=== PATIENT | male | born 1960 | race Caucasian/White ===

== ENCOUNTER 2021-11-04 09:30 | Emergency (ER) | payer BC, SELFPAY ==
[2021-11-04 09:35] VITALS: BP 188/104; PULSE 70; RESP 16; O2SAT 94; BMI 35.1
--- NOTE | 2021-11-04 09:48 | ED_ITS ---
HPI - General Adult General: Chief complaint: General Medical Stated complaint: ABNORMAL LAB, CHEST PAIN Time Seen by Provider: 11/04/21 09:39 Source: patient Mode of arrival: ambulatory Limitations: no limitations History of Present Illness: 61-year-old male presents emergency room with complaint of abnormal EKG. He was seen his primary care doctor's office this morning see nurse practitioner there is a concern about an abnormal EKG and he was referred to the emergency room. He is not actively having any chest pain now. He does occasionally while at work began to have chest discomfort radiatin g into his back will resolve with a few minutes of rest he associates that with bending over. He has not had any previous stress testing he has no known coronary artery disease his mother had a coronary artery bypass graft at approximately the same age he is now. Patient is a former smoker quit 10 years ago he is diabetic and has a history of hypertension. Beyond the bending over and rest he is not noticed anything that exacerbates or relieves the discomfort. He has some mild shortness of breath associated with it which is also relieved by rest. Onset (ago): week(s) Location: chest Radiation: back Severity: mild Quality: aching Pain Consistency: intermittent Relieving factors: none Exacerbating factors: none Associated symptoms: Reports chest pain and dyspnea; Deny malaise, nausea, rash or vomiting Review of Systems Const: Denies: fever(s), chills, body aches, change in appetite, fatigue or malaise ENMT: Denies: throat pain, ear or mastoid pain, nasal discharge or nasal congestion Card: Reports: chest pain Resp: Reports: dyspnea GI: Denies: abdominal pain, nausea, vomiting, hematemesis, coffee ground emesis, diarrhea, constipation, bloating, hematochezia or melena : Denies: flank pain, dysuria, urinary frequency or urinary urgency Skin/Breast: Denies: rash or pruritus PFS ED PFSH: Medical History (Updated 11/04/21 @ 12:56 by Ky Amador DO) Diabetes mellitus Hypertension Obesity Physical Exam Const: COMMON NORMALS: no acute distress GENERAL APPEARANCE: cooperative and comfortable ORIENTATION/CONSCIOUSNESS: Yes awake, Yes oriented to person, Yes oriented to place and Yes oriented to time HENMT: COMMON NORMALS: normocephalic, atraumatic and hearing grossly normal bilaterally HEAD & SCALP: normocephalic and atraumatic Neck/C-Spine: COMMON NORMALS: no JVD Resp: COMMON NORMALS: normal respiratory effort, No retractions, No use of accessory muscles and clear to auscultation bilaterally AUSCULTATION: clear to auscultation bilaterally Cardio: COMMON NORMALS: no JVD, regular rate, regular rhythm and No murmurs present (Cardio) RATE: regular rate RHYTHM: regular rhythm GI: COMMON NORMALS: Soft to palpation and No hepatosplenomegaly present AUSCULTATION: Yes normoactive bowel sounds PALPATION: Yes Soft to palpation, No Tenderness to palpation present (GI), No Guarding due to palpation present (GI) and Yes No hepatosplenomegaly present Extremity: COMMON NORMALS: normal to inspection, capillary refill normal, no clubbing, cyanosis or edema, no calf tenderness and no pedal edema Neuro: SENSORIUM/ORIENTATION: Yes oriented to person, Yes oriented to place and Yes oriented to time Skin: COMMON NORMALS: no rashes or lesions noted GENERAL SKIN EXAM: no rashes or lesions noted Course Vital Signs: Vital signs: Vital Signs Pulse Rate 63 11/04/21 11:09 Respiratory Rate 18 11/04/21 11:09 Blood Pressure 167/95 11/04/21 11:09 Pulse Oximetry 94 11/04/21 11:09 [facility] - General Adult Medical Decision Making Patient asymptomatic this time EKG shows early repole but no acute ST changes troponin unremarkable. We will add isosorbide mononitrate 30 mg grams daily for cardioprotective effect and blood pressure lowering set him up for outpatient Lexiscan sestamibi stress test. Avoid strenuous activity recurrence of chest pain he should return to the emergency room. continue to take 81 mg aspirin daily. follow-up with his primary care doctor after the stress test is completed. Medical Records I reviewed the patient's medical records. Lab Data I reviewed the patient's lab results. : 11/04/21 09:13 11/04/21 09:13 Radiology Impressions Chest X-Ray 11/04/21 09:56 IMPRESSION: No acute chest abnormality identified. Laboratory Results WBC 6.5 10^3/uL (4.0-10.0) 11/04/21 09:13 RBC 5.79 10^6/uL (4.1-5.3) H 11/04/21 09:13 Hgb 14.8 g/dL (11.7-16.6) 11/04/21 09:13 Hct 47.0 % (42.0-52.0) 11/04/21 09:13 MCV 81.2 fl (80-94) 11/04/21 09:13 MCH 25.6 pg (28.0-34.0) L 11/04/21 09:13 MCHC 31.5 g/dL (30.0-36.0) 11/04/21 09:13 RDW 14.0 % (12.1-15.1) 11/04/21 09:13 Plt Count 248 10^3/cmm (130-400) 11/04/21 09:13 MPV 10.5 fL (7.4-10.4) H 11/04/21 09:13 Neut % (Auto) 65.9 % 11/04/21 09:13 Lymph % (Auto) 22.7 % 11/04/21 09:13 Gem % (Auto) 7.7 % 11/04/21 09:13 Eos % (Auto) 2.9 % 11/04/21 09:13 Baso % (Auto) 0.6 % 11/04/21 09:13 Neut # (Auto) 4.29 10^3/uL (1.8-7.7) 11/04/21 09:13 Lymph # (Auto) 1.5 10^3/uL (0.8-4.8) 11/04/21 09:13 Gem # (Auto) 0.5 10^3/uL (0.2-0.9) 11/04/21 09:13 Eos # (Auto) 0.2 10^3/uL (0.0-0.8) 11/04/21 09:13 Baso # (Auto) 0.0 10^3/uL (0.0-0.1) 11/04/21 09:13 Nucleated RBC % (auto) 0 % 11/04/21 09:13 Nucleated RBCs # 0.0 /100WBC 11/04/21 09:13 Sodium 132 mmol/L (136-145) L 11/04/21 09:13 Potassium 3.8 mmol/L (3.5-5.1) 11/04/21 09:13 Chloride 100 mmol/L (98-107) 11/04/21 09:13 Carbon Dioxide 21 mmol/L (22-29) L 11/04/21 09:13 Anion Gap 14.8 (5-19) 11/04/21 09:13 BUN 12 mg/dL (8-23) 11/04/21 09:13 Creatinine 0.7 mg/dL (0.7-1.2) 11/04/21 09:13 GFR Calculation 115.0 mL/min (90-130) 11/04/21 09:13 Glucose 242 mg/dL (65-115) H 11/04/21 09:13 Calculated Osmolality 282 mOsm/kg (285-295) L 11/04/21 09:13 Calcium 9.3 mg/dL (8.5-10.5) 11/04/21 09:13 Total Bilirubin 0.4 mg/dL (0.15-1.2) 11/04/21 09:13 AST 11 U/L (0-40) 11/04/21 09:13 ALT 10 U/L (0-41) 11/04/21 09:13 Alkaline Phosphatase 97 IU/L (40-130) 11/04/21 09:13 Troponin T Baseline 15 ng/L (0-15) 11/04/21 09:13 Troponin T 120 Minute 14.90 ng/L (0-15) 11/04/21 11:56 Total Protein 6.7 g/dL (6.6-8.7) 11/04/21 09:13 Albumin 3.9 g/dL (3.5-5.2) 11/04/21 09:13 Globulin 2.8 g/dL (1.3-4.6) 11/04/21 09:13 Discharge Plan Discharge Patient Disposition: Home Condition: Stable Prescriptions: New isosorbide mononitrate 30 mg tablet extended release 24 hr 30 mg PO DAILY Qty: 30 0RF No Action carvedilol 25 mg tablet 25 mg PO BID 0RF glyburide 5 mg tablet 5 mg PO BID 0RF Aspir-81 81 mg Tablet,Delayed Release (Dr/Ec) 81 mg PO QAM 0RF metformin 1,000 mg tablet 1,000 mg PO BID 0RF cinnamon bark [Cinnamon] 500 mg Capsule 500 mg PO BID 0RF Discharge Orders: Discharge ED (Routine); Ordered 11/04/21 Ordered By: Ky Amador Referrals: Alex Auguste, [Primary Care Provider] - Discharge Diet: Usual diet Discharge Activity: Limit activity as instructed Patient Instructions: Opioid Safety Activity Restrictions/Additional Instructions: Avoid strenuous activities. Start isosorbide mononitrate 1 daily. Continue aspirin 81 mg daily. manager strategic partnerships will call make arrangements for you to have a Lexiscan sestamibi stress test. Follow-up with your primary care doctor after this is completed. If you have any further chest pain return to the emergency room. Coding Level of Care Code ED Strategic Debriefing Specialist for Fer Dumas
--- NOTE | 2021-11-04 09:56 | ECG_ITS ---
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: : 1960 Requested By: Ky Ocampo Order Number: [id number] Reading MD: GUALBERTO HARRIS Measurements Intervals [place] Rate: 67 P: 55 MO: 139 QRS: 29 QRSD: 106 T: 131 QT: 407 QTc: 432 Interpretive Statements SINUS RHYTHM WITH SINUS ARRHYTHMIA LEFT VENTRICULAR HYPERTROPHY AND ST-T CHANGE [VOLTAGE CRITERIA PLUS ST/T ABNORMALITY] Compared to ECG 06/10/2019 11:42:13 Left ventricular hypertrophy now present ST (T wave) deviation now present Short MO interval no longer present T-wave abnormality no longer present Electronically Signed On 11-04-2021 19:51:13 CERTIFIED WELLNESS PROGRAM MANAGER by GUALBERTO HARRIS [email or web address] university of [facility].[employer]/store/NU/[id number] f
--- NOTE | 2021-11-04 09:56 | XR_ITS ---
WS: [id number] XR chest 1V portable [id number] REASON FOR EXAM: chest pain FINDINGS: Compared to previous examination of 06/20/2019, cardiac silhouette is more prominent but not significa ntly enlarged. Interstitial lung opacities appear to be chronic. There is calcified granulomatous disease bilaterall y. No definite acute pulmonary parenchymal or pleural abnormality. 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 XR/XR chest 1V portable [id number] IMPRESSION: No acute chest abnormality identified.
[2021-11-04 10:05] VITALS: BP 201/120; PULSE 64; RESP 18; O2SAT 94
[2021-11-04 10:09] LABS: Basophils % 0.6 %; Eosinophils # 0.2 10^3/uL (0.0-0.8); Eosinophils % 2.9 %; Hemoglobin 14.8 g/dL (11.7-16.6); Lymphocytes # 1.5 10^3/uL (0.8-4.8); Lymphocytes % 22.7 %; Mean Corpuscular HGB Conc 31.5 g/dL (30.0-36.0); Mean Corpuscular Hemoglobin 25.6 pg (28.0-34.0); Mean Corpuscular Volume 81.2 fl (80-94); Mean Platelet Volume 10.5 fL (7.4-10.4); Monocytes # 0.5 10^3/uL (0.2-0.9); Monocytes % 7.7 %; Neutrophils # 4.29 10^3/uL (1.8-7.7); Neutrophils % 65.9 %; Nucleated Red Blood Cells % 0 %; Platelet Count 248 10^3/cmm (130-400); Red Blood Count 5.79 10^6/uL (4.1-5.3); White Blood Count 6.5 10^3/uL (4.0-10.0)
[2021-11-04] MEDS: labetalol 5 mg/mL SDV 20mL 10 MG IVP (10:19)
[2021-11-04] MEDS: amlodipine 5 mg Tablet PO (10:19)
[2021-11-04] MEDS: aspirin 81 mg Chew Tablet 324 MG PO (10:19)
[2021-11-04] MEDS: metoprolol tartrate 25 mg Tablet PO (10:19)
[2021-11-04 10:23] LABS: Alanine Aminotransferase 10 U/L (0-41); Albumin Level 3.9 g/dL (3.5-5.2); Alkaline Phosphatase 97 IU/L (40-130); Anion Gap 14.8 (5-19); Aspartate Amino Transferase 11 U/L (0-40); Blood Urea Nitrogen 12 mg/dL (8-23); Calcium 9.3 mg/dL (8.5-10.5); Carbon Dioxide 21 mmol/L (22-29); Chloride 100 mmol/L (98-107); Globulin 2.8 g/dL (1.3-4.6); Glucose 242 mg/dL (65-115); Osmolality Calculated 282 mOsm/kg (285-295); Potassium 3.8 mmol/L (3.5-5.1); Sodium 132 mmol/L (136-145); Total Bilirubin 0.4 mg/dL (0.15-1.2); Total Protein 6.7 g/dL (6.6-8.7)
[2021-11-04 10:26] LABS: Troponin(5th) Baseline 15 ng/L (0-15)
[2021-11-04 11:09] VITALS: BP 167/95; PULSE 63; RESP 18; O2SAT 94
[2021-11-04 13:15] LABS: Troponin 5 2HR Delta -0.1 ABS# (0-10)
--- NOTE | 2021-11-04 15:56 | ECG_ITS ---
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: : 1960 Requested By: Ky Ocampo Order Number: [id number] Reading MD: GUALBERTO HARRIS Measurements Intervals [place] Rate: 56 P: 57 NE: 137 QRS: 24 QRSD: 108 T: 162 QT: 437 QTc: 425 Interpretive Statements SINUS BRADYCARDIA WITH MARKED SINUS ARRHYTHMIA LEFT VENTRICULAR HYPERTROPHY AND ST-T CHANGE [VOLTAGE CRITERIA PLUS ST/T ABNORMALITY] Compared to ECG 11/04/2021 09:36:09 Sinus rhythm no longer present ST (T wave) deviation still present Electronically Signed On 11-04-2021 19:52:07 ELECTRO MECHANIC by GUALBERTO HARRIS [email or web address]/[id number]
--- NOTE | 2021-11-05 14:02 | DCPLANNER ---
Addendum entered by Lindy Escobar 11/30/21 10:51: Patient had an outpatient stress test scheduled for 11.26.21 - patient did attend appointment. Original Note: life sciences manager had message to schedule an outpatient stress test for patient. life sciences manager faxed signed order to centralized scheduling, who will call patient with appointment information. life sciences manager also had message to speak with patient about getting an appointment with primary care physician. life sciences manager called phone number [phone], unable to speak with patient at this time, a voicemail was left for patient to return top case assembler phone call.
== END 2021-11-04 12:56 | disposition home or self-care (01) ==
PROVIDERS: Emergency Provider Family Medicine; PCP Family Medicine
DX: R94.31 Abnormal electrocardiogram [ECG] [EKG] (principal); Z79.82 Long term (current) use of aspirin; Z79.84 Long term (current) use of oral hypoglycemic drugs; E11.9 Type 2 diabetes mellitus without complications; I10 Essential (primary) hypertension
CPT/HCPCS: 36415; 71045; 80053; 84484; 85025; 93005; 96374; 99283; J3490

== ENCOUNTER 2021-11-26 07:29 | Outpatient (CLI) | payer BC, SELFPAY ==
[2021-11-26 08:07] VITALS: BMI 35.1
--- NOTE | 2021-11-26 08:12 | ECG_ITS ---
[facility] Test Date: 2021-11-26 Pat Name: Tylor Cummings Department: Room: Gender: Male Braille Translator: Agatha SanchezFarhat : 1960 Requested By: Ky Ocampo Order Number: [id number] Ariana MD: Mani Kirby M.D. Interpretive Statements NAME OF STUDY: LEXISCAN SESTAMIBI STRESS TEST INDICATION: Atypical Chest Pain, SEND RESULTS TO DR. ISSA PROCEDURE: At the baseline, the EKG revealed sinus bradycardia with a frequent supraventricular ectopics. Diffuse nonspecific ST-T changes. The baseline blood pressure was 167/103 mm Hg with a heart rate of 55 beats/min. Lexiscan was infused over a period of 20 seconds. A total of 0.4 milligrams of Lexiscan was infused. The stress phase was continued for a total of 5 minutes. Heart rate at the end of the stress phase was 61 with a blood pressure 169/80. The EKG at the peak infusion revealed no significant changes. Sestamibi was injected 20 seconds after the Lexiscan infusion. Blood pressure at the end of the recovery phase was 163/82 with a heart rate of 64 per minute. CONCLUSION: 1. No significant EKG changes with the LexiScan infusion 2. No LexiScan induced chest pain or cardiac arrhythmia 3. Normal blood pressure and heart rate response 4. Sestamibi/sestamibi perfusion scan pending; see separate report. Electronically Signed On 11-29-2021 10:56:31 SENIOR VISUAL DESIGNER by Mani Kirby M.D. [email or web address].Adenyo/store/OM/[id number]
--- NOTE | 2021-11-26 08:13 | NMCV_ITS ---
NM marlene perf SPECT r/s* [id number] Tylor Cummings Age: 61 Gender: M : 1960 Exam Date: 11/26/2021 09:13 Ordering Phys: Ky Amador DO Technologist: VENU Calix Exam Location: [facility] Indications: CHEST PAIN STRESS TEST Please see separate stress test report in [facility] for full findings IMAGE PROTOCOL Rest/Stress 1 Lexiscan Day Radiopharmaceutical Dose (mCi) Administration Site Administered by Rest: Tc-99m 10.6 IV VENU Calix Sestamibi Stress:Tc-99m 33.0 IV VENU Knight Sestamibi Rest: 26-Nov-2021 60 Discovery 630 Stress: 26-Nov-2021 30 Discovery 630 0.4mg Lexiscan. Images obtained in supine and prone position. SPECT RESULTS Technical Quality: Excellent Raw Data Analysis: Normal Image Corrections: No attenuation or motion correction applied Summed Stress Score: 0 Summed Rest Score: 1 Summed Difference Score: 0 PERFUSION FINDINGS Patchy areas of slightly decreased tracer uptake are noted in the anterior wall and inferior wall regions. No significant reversibility were noted. FUNCTIONAL RESULTS (calculated via Gated SPECT) Stress Image LV EF (%): 35 Stress EDV (mL):205 TID: 1.14 Stress ESV (mL):134 FUNCTIONAL FINDINGS: LV wall motion analysis revealing diffuse hypokinesia of the left ventricle IMPRESSIONS 1.. Myocardial perfusion imaging revealing patchy areas of persistent decreased tracer uptake in the anterior wall and inferior wall regions suggesting myocardial scarring versus attenuation artifacts. 2. Dimensional ejection fraction 35%. 3. LV wall motion analysis revealing diffuse hypokinesia of the left ventricle. 4. Moderately dilated LV cavity with end-systolic volume of 134 ml 5. Elevated transischemic dilatation ratio, may suggest endocardial ischemia. But the positive predictive value of this finding is limited. Clinical correlation is recommended The above features may suggest some form of nonischemic cardiomyopathy versus three-vessel coronary artery disease. Compared to the study from a 11/16/2018, there is worsening of the LV systolic function and increase in the LV size. Dr Mani Kirby MD FACC (Electronically Signed) Final Date: 26 November 2021 12:44 S
[2021-11-26] MEDS: regadenoson 0.4 Mg/5 ml Syringe IVP (09:43)
[2021-11-26 10:00] VITALS: BP 163/82; PULSE 60
== END 2021-11-26 07:30 | disposition home or self-care (01) ==
LOC: RAD 07:31 → CDL 08:06
PROVIDERS: PCP Family Medicine; Visit Provider Family Medicine
DX: R07.89 Other chest pain (principal); R94.39 Abnormal result of other cardiovascular function study
CPT/HCPCS: 78452; 93017; A9500; J2785

== ENCOUNTER 2022-02-04 11:33 | Outpatient (RCR) | payer BC, SELFPAY | END 2022-03-04 23:59 | disposition home or self-care (01) | LOC: CR 11:33 | PROVIDERS: PCP Family Medicine; Referring Provider Nurse Practitioner Family; Visit Provider Nurse Practitioner Family | DX: Z95.1 Presence of aortocoronary bypass graft (principal) | CPT/HCPCS: 93798 ==

== ENCOUNTER 2022-03-05 08:05 | Outpatient (RCR) | payer BC, SELFPAY | END 2022-04-03 23:59 | disposition home or self-care (01) | LOC: CR 08:05 | PROVIDERS: PCP Family Medicine; Referring Provider Nurse Practitioner Family; Visit Provider Nurse Practitioner Family | DX: Z95.1 Presence of aortocoronary bypass graft (principal) | CPT/HCPCS: 93798 ==

== ENCOUNTER → 2022-07-02 08:22 | Outpatient (BNVA) | payer BC, SELFPAY | PROVIDERS: PCP Family Medicine; Visit Provider Family Medicine | DX: I25.10 Atherosclerotic heart disease of native coronary artery without angina pectoris (principal); E66.9 Obesity, unspecified; I10 Essential (primary) hypertension; E11.9 Type 2 diabetes mellitus without complications; E78.5 Hyperlipidemia, unspecified; E16.2 Hypoglycemia, unspecified | CPT/HCPCS: 80053; 80061; 83036 ==

== ENCOUNTER → 2022-07-04 10:33 | Outpatient (BNVA) | payer BC, SELFPAY | PROVIDERS: PCP Family Medicine; Visit Provider Registered Nurse Neonatal Intensive Care | DX: S99.912A Unspecified injury of left ankle, initial encounter (principal); X58.XXXA Exposure to other specified factors, initial encounter | CPT/HCPCS: 73610 ==

== ENCOUNTER → 2022-10-13 09:13 | Outpatient (BNVA) | payer BC, SELFPAY | PROVIDERS: PCP Family Medicine; Visit Provider Clinical Nurse Specialist Adult Health | DX: E78.5 Hyperlipidemia, unspecified (principal); E11.9 Type 2 diabetes mellitus without complications; I10 Essential (primary) hypertension; E66.01 Morbid (severe) obesity due to excess calories; I25.10 Atherosclerotic heart disease of native coronary artery without angina pectoris; Z68.35 Body mass index [BMI] 35.0-35.9, adult; E78.00 Pure hypercholesterolemia, unspecified | CPT/HCPCS: 80053; 80061; 83036; 85025 ==

== ENCOUNTER 2022-12-30 11:54 | Observation (INO) | payer BC, SELFPAY ==
[2022-12-30] VITALS (32 sets, daily range): BP systolic 107–156; BP diastolic 55–77; PULSE 53–70; RESP 8–22; TEMP 36.4; O2SAT 89–98; BMI 33.9
--- NOTE | 2022-12-30 12:22 | PC.NURSE ---
PT STATES HE HAS A HX OF HEART SURGERY. PT STATES HE BECAME DIZZY AND LIGHTHEADED LAST NIGHT WHEN HIS CHEST STARTED TO HURT. PT STATES HE WOKE THIS MORNING AND WENT TO WORK WHEN IT STARTED AGAIN. PT STATES HE THOUGHT IT WAS HIS BLOOD SUGAR SO HE ATE BUT IT DID NOT HELP. PT STATES PAIN WAS VERY SEVERE IN THE MIDDLE OF HIS BACK AND WORKED ITS WAY ACROSS HIS CHEST AND RADIATED UP TO HIS NECK.
--- NOTE | 2022-12-30 12:24 | XR_ITS ---
WS: [id number] Exam: XR chest 1V portable [id number] Date/Time of Exam: 12/30/2022 12:24 PM Reason For Exam: chest pain Comparison 11/04/2021 the lungs are hyperinflated and clear. Cardiomediastinal silhouette is unremarka ble. Signs of median sternotomy. Bibasal plaque atelectasis. Bony structures are intact. Bilateral AC joint DJD. XR/XR chest 1V portable [id number] IMPRESSION: 1. Pulmonary hyperinflation which might indicate COPD. No acute process. 2. Bibasal plaque atelectasis.
--- NOTE | 2022-12-30 12:24 | ECG_ITS ---
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 Measurements Intervals [place] Rate: 63 P: 49 IL: 115 QRS: 46 QRSD: 122 T: 170 QT: 399 QTc: 410 Interpretive Statements SINUS RHYTHM WITH SHORT IL INTERVAL MODERATE INTRAVENTRICULAR CONDUCTION DELAY [105+ ms QRS DURATION, 80+ ms Q/S IN V1/V2, NO Q AND 60+ ms R IN I/aVL/V5/V6] NONSPECIFIC T-WAVE ABNORMALITY Compared to ECG 11/04/2021 12:43:51 Short [place] interval now present Intraventricular conduction delay now present T-wave abnormality now present Sinus bradycardia no longer present Sinus arrhythmia no longer present Left ventricular hypertrophy no longer present ST (T wave) deviation no longer present Electronically Signed On 12-31-2022 0:26:31 CDT by Mani Kirby M.D. [id number] nataliia
--- NOTE | 2022-12-30 12:40 | ED_ITS ---
HPI - Chest Pain General: Chief Complaint: Chest Pain Stated Complaint: chest and back pain Time Seen by Provider: 12/30/22 12:11 Source: patient Mode of arrival: ambulatory History of Present Illness: 62-year-old male presents emergency room complaining of chest pain radiating to his back with dizziness. Said intermittently since this morning. He had other episodes over the last week or 2 was self-limiting chest pain associated with exertion. He is having no discomfort at this time. He has a history of previous CT with coronary bypass graft subsequent angioplasty with stenting. MD complaint: chest pain Pertinent past history: coronary artery disease Onset (ago): hour(s) Timing of current episode: episodic Prior episodes: Yes Onset: during exertion Pain location: left chest Pain radiation: back Severity: moderate Quality: aching and heaviness Relieving factors: rest Exacerbating factors: exertion Associated symptoms: Deny abdominal pain, diaphoresis, dyspnea, fever(s), leg edema, nausea, palpitations, sense of impending doom, syncope or vomiting Treatment prior to arrival: none Review of Systems Const: Denies: fever(s), chills, fatigue, malaise or diaphoresis ENMT: Denies: throat pain, ear or mastoid pain, nasal discharge or nasal congestion Card: Reports: chest pain; Denies: palpitations, irregular heart rhythm, edema, swelling of feet/ankles or syncope Resp: Denies: dyspnea GI: Denies: abdominal pain, nausea or vomiting : Denies: flank pain, dysuria, urinary frequency or urinary urgency Skin/Breast: Denies: rash or pruritus PFSH ED PFSH: Medical History Coronary artery disease Diabetes mellitus Hypertension Obesity Surgical History Hx of carpal tunnel repair Hx of coronary artery bypass graft December 2021 Family History Other CAD (coronary artery disease) Diabetes Social History Smoking and tobacco status: former smoker Quit status (tobacco): has quit using tobacco Year quit tobacco: 2010 Former quit date comment: 35 pack year history Physical Exam Const: GENERAL APPEARANCE: cooperative and comfortable ORIENTATION/CONSCIOUSNESS: Yes awake, Yes oriented to person, Yes oriented to place and Yes oriented to time HENMT: COMMON NORMALS: normocephalic, atraumatic and hearing grossly normal bilaterally HEAD & SCALP: normocephalic and atraumatic Resp: COMMON NORMALS: normal respiratory effort, No retractions, No use of accessory muscles and clear to auscultation bilaterally AUSCULTATION: clear to auscultation bilaterally Cardio: COMMON NORMALS: regular rate, regular rhythm and No murmurs present (Cardio) RATE: regular rate RHYTHM: regular rhythm GI: COMMON NORMALS: Soft to palpation and No hepatosplenomegaly present AUSCULTATION: Yes normoactive bowel sounds PALPATION: Yes Soft to palpation, No Tenderness to palpation present (GI), No Guarding due to palpation present (GI) and Yes No hepatosplenomegaly present Extremity: COMMON NORMALS: normal to inspection, capillary refill normal, no clubbing, cyanosis or edema, no calf tenderness and no pedal edema Neuro: SENSORIUM/ORIENTATION: Yes oriented to person, Yes oriented to place and Yes oriented to time Skin: COMMON NORMALS: no rashes or lesions noted GENERAL SKIN EXAM: no rashes or lesions noted Course Vital Signs: Vital signs: Vital Signs Pulse Rate 58 L 12/30/22 15:32 Respiratory Rate 12 12/30/22 15:32 Blood Pressure 137/63 12/30/22 15:32 Pulse Oximetry 94 12/30/22 15:32 Oxygen Delivery Me thod 12/30/22 12:12 MDM - Chest Pain Medical Decision Making Patient has significant obstruction on heart disease. Sounds like he has been having escalating symptoms. Discussed with hospitalist will admit patient given topical nitro. No acute changes on EKG and initial [place]. Medical Records I reviewed the patient's medical records. Lab Data I reviewed the patient's lab results. 12/30/22 12:17 12/30/22 12:17 Radiology Impressions Chest X-Ray 12/30/22 12:24 IMPRESSION: 1. Pulmonary hyperinflation which might indicate COPD. No acute process. 2. Bibasal plaque atelectasis. Laboratory Results WBC 7.2 10^3/uL (4.0-10.0) 12/30/22 12:17 RBC 5.14 10^6/uL (4.1-5.3) 12/30/22 12:17 Hgb 13.0 g/dL (11.7-16.6) 12/30/22 12:17 Hct 41.2 % (42.0-52.0) L 12/30/22 12:17 MCV 80.2 fl (80-94) 12/30/22 12:17 MCH 25.3 pg (28.0-34.0) L 12/30/22 12:17 MCHC 31.6 g/dL (30.0-36.0) 12/30/22 12:17 RDW 15.0 % (12.1-15.1) 12/30/22 12:17 Plt Count 204 10^3/cmm (130-400) 12/30/22 14:47 MPV 10.1 fL (7.4-10.4) 12/30/22 12:17 Neut % (Auto) 69.2 % 12/30/22 12:17 Lymph % (Auto) 20.3 % 12/30/22 12:17 Ponce % (Auto) 7.5 % 12/30/22 12:17 Eos % (Auto) 2.1 % 12/30/22 12:17 Baso % (Auto) 0.6 % 12/30/22 12:17 Neut # (Auto) 4.98 10^3/uL (1.8-7.7) 12/30/22 12:17 Lymph # (Auto) 1.5 10^3/uL (0.8-4.8) 12/30/22 12:17 [place]once # (Auto) 0.5 10^3/uL (0.2-0.9) 12/30/22 12:17 Eos # (Auto) 0.2 10^3/uL (0.0-0.8) 12/30/22 12:17 Baso # (Auto) 0.0 10^3/uL (0.0-0.1) 12/30/22 12:17 Nucleated RBC % (auto) 0 % 12/30/22 12:17 Nucleated RBCs # 0.0 /100WBC 12/30/22 12:17 PT 14.30 SECONDS (12.1-14.9) 12/30/22 14:45 INR 1.07 (0.8-1.2) 12/30/22 14:45 APTT 26.9 SECONDS (23.9-36.7) 12/30/22 14:45 Sodium 129 mmol/L (136-145) L 12/30/22 12:17 Potassium 3.3 mmol/L (3.5-5.1) L 12/30/22 12:17 Chloride 93 mmol/L (98-107) L 12/30/22 12:17 Carbon Dioxide 19 mmol/L (22-29) L 12/30/22 12:17 Anion Gap 20.3 (5-19) H 12/30/22 12:17 BUN 32 mg/dL (8-23) H 12/30/22 12:17 Creatinine 1.7 mg/dL (0.7-1.2) H 12/30/22 12:17 GFR Calculation 41.2 mL/min (90-130) L 12/30/22 12:17 Glucose 271 mg/dL (65-115) H 12/30/22 12:17 Calculated Osmolality 284 mOsm/kg (285-295) L 12/30/22 12:17 Calcium 8.9 mg/dL (8.5-10.5) 12/30/22 12:17 Total Bilirubin 0.6 mg/dL (0.15-1.2) 12/30/22 12:17 AST 18 U/L (0-40) 12/30/22 12:17 ALT 14 U/L (0-41) 12/30/22 12:17 Alkaline Phosphatase 94 U/L (40-130) 12/30/22 12:17 Troponin T Baseline 17 ng/L (0-15) H 12/30/22 12:17 Troponin T 120 Minute 14.67 ng/L (0-15) 12/30/22 14:45 Delta Troponin T -2.33 ABS# (0-10) L 12/30/22 14:45 Total Protein 7.0 g/dL (6.6-8.7) 12/30/22 12:17 Albumin 4.0 g/dL (3.5-5.2) 12/30/22 12:17 Globulin 3.0 g/dL (1.3-4.6) 12/30/22 12:17 Discharge Plan Discharge Admit Provider: Nabil Cameron Condition: Stable Coding Level of Care Code ED Technical Services Specialist for Fer Dumas
[2022-12-30] MEDS: aspirin 81 mg Chew Tablet 324 MG PO (12:44)
[2022-12-30 12:49] LABS: Basophils % 0.6 %; Eosinophils # 0.2 10^3/uL (0.0-0.8); Eosinophils % 2.1 %; Hematocrit 41.2 % (42.0-52.0); Lymphocytes # 1.5 10^3/uL (0.8-4.8); Lymphocytes % 20.3 %; Mean Corpuscular HGB Conc 31.6 g/dL (30.0-36.0); Mean Corpuscular Hemoglobin 25.3 pg (28.0-34.0); Mean Corpuscular Volume 80.2 fl (80-94); Mean Platelet Volume 10.1 fL (7.4-10.4); Monocytes # 0.5 10^3/uL (0.2-0.9); Monocytes % 7.5 %; Neutrophils # 4.98 10^3/uL (1.8-7.7); Neutrophils % 69.2 %; Nucleated Red Blood Cells % 0 %; Platelet Count 229 10^3/cmm (130-400); Red Blood Count 5.14 10^6/uL (4.1-5.3); White Blood Count 7.2 10^3/uL (4.0-10.0)
[2022-12-30 13:08] LABS: Troponin(5th) Baseline 17 ng/L (0-15)
[2022-12-30 13:09] LABS: Alanine Aminotransferase 14 U/L (0-41); Alkaline Phosphatase 94 U/L (40-130); Anion Gap 20.3 (5-19); Aspartate Amino Transferase 18 U/L (0-40); Blood Urea Nitrogen 32 mg/dL (8-23); Calcium 8.9 mg/dL (8.5-10.5); Carbon Dioxide 19 mmol/L (22-29); Chloride 93 mmol/L (98-107); Glomerular Filtration Rate 41.2 mL/min (90-130); Glucose 271 mg/dL (65-115); Osmolality Calculated 284 mOsm/kg (285-295); Potassium 3.3 mmol/L (3.5-5.1); Sodium 129 mmol/L (136-145); Total Bilirubin 0.6 mg/dL (0.15-1.2)
--- NOTE | 2022-12-30 13:33 | PC.NURSE ---
PT PLACED ON CONTINUOUS NIBP, SPO2, AND CM
--- NOTE | 2022-12-30 14:24 | ECG_ITS ---
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 Measurements Intervals [place] Rate: 56 P: 45 MD: 125 QRS: 54 QRSD: 118 T: 190 QT: 419 QTc: 406 Interpretive Statements SINUS BRADYCARDIA MODERATE INTRAVENTRICULAR CONDUCTION DELAY [105+ ms QRS DURATION, 80+ ms Q/S IN V1/V2, NO Q AND 60+ ms R IN I/aVL/V5/V6] MODERATE T-WAVE ABNORMALITY, CONSIDER LATERAL ISCHEMIA [-0.1+ mV T-WAVE IN I/aVL/V5/V6] Compared to ECG 12/30/2022 11:57:16 Possible ischemia now present Sinus rhythm no longer present Short MD interval no longer present T-wave abnormality still present Electronically Signed On 12-31-2022 0:52:21 CDT by Mani Kirby M.D. [id number]
[2022-12-30 14:57] LABS: Platelet Count 204 10^3/cmm (130-400)
--- NOTE | 2022-12-30 15:09 | PC.NURSE ---
PT STATES HE WEIGHS 230
[2022-12-30 15:10] LABS: Troponin 5 2HR 14.67 ng/L (0-15)
[2022-12-30] MEDS: nitroglycerin 1 gm/inch oint Pkt 1 INCH TOPICAL (15:18)
[2022-12-30 15:29] LABS: INR 1.07 (0.8-1.2)
[2022-12-30 15:31] LABS: Partial Thromboplastin Time 26.9 SECONDS (23.9-36.7); Troponin 5 2HR Delta -2.33 ABS# (0-10)
--- NOTE | 2022-12-30 15:46 | PM.HP ---
Providers/Chief Complaint Primary Care Provider: Alex Auguste DO Chief Complaint: chest and back pain History of Present Illness Tylor Cummings is a 62 year old male with past medical history of hypertension, diabetes, coronary artery disease s/p CABG , came in from home with chief complaint of chest tightness as well as shoulder blade pain, started about 2 days back prior to the day of admission, was accompanied with some dizziness, mild shortness of breath, chest tightness was relieved with nitro patch. EKG has shown: Sinus bradycardia with moderate IVCD, moderate T wave abnormality possible lateral ischemia. X-ray chest: Bibasal plaque atelectasis. Pertinent labs: WBC 5.2, H&H:13/43 , PLT : 211 , serum sodium 135 serum potassium 4, BUN :32 , SCR : 1.7 Troponin trend: 17,14,14 Review of Systems General: Reports: 10 or more systems reviewed and unremarkable except in HPI and below Const: Denies: fever(s), chills, body aches, change in appetite or diaphoresis Card: Denies: palpitations, edema, swelling of feet/ankles, dyspnea on exertion, orthopnea or leg pain with exertion Resp: Denies: dyspnea, productive cough, wheezing or pain on inspiration GI: Denies: abdominal pain, nausea, vomiting, diarrhea or constipation : Denies: flank pain or difficulty urinating Musc: Denies: back pain, extremity pain or extremity swelling Neuro: Denies: headache(s), difficulty walking or confusion Medications/Allergies Home Medications Medication Instructions Recorded Confirmed Last Taken Type aspirin 81 mg tablet,delayed 81 mg PO QAM 11/04/21 12/30/22 12/30/22 History release cinnamon bark 500 mg capsule 500 mg PO BID 11/04/21 12/30/22 12/30/22 History (Cinnamon) tamsulosin 0.4 mg capsule 0.4 mg PO DAILY 04/02/22 12/30/22 12/30/22 History clopidogrel 75 mg tablet 75 mg PO DAILY 05/06/22 12/30/22 12/30/22 History isosorbide mononitrate 60 mg 60 mg PO DAILY 05/06/22 12/30/22 12/30/22 History tablet,extended release 24 hr amlodipine 10 mg tablet 10 mg PO DAILY for bp #90 tabs 08/07/22 12/30/22 12/30/22 Rx atorvastatin 80 mg tablet 80 mg PO DAILY 10/13/22 12/30/22 12/30/22 History hydrochlorothiazide 50 mg tablet 50 mg PO DAILY 10/13/22 12/30/22 12/30/22 History lisinopril 40 mg tablet 40 mg PO DAILY 10/13/22 12/30/22 12/30/22 History potassium chloride 10 mEq 10 meq PO DAILY #30 caps 10/15/22 12/30/22 Unknown Rx capsule,extended release amiodarone 200 mg tablet 200 mg PO DAILY 12/30/22 12/30/22 12/30/22 History carvedilol 25 mg tablet 25 mg PO DAILY for heart 12/30/22 12/30/22 12/30/22 History metformin 1,000 mg tablet 500 mg PO BID 12/30/22 12/30/22 12/30/22 History Allergies Allergy/AdvReac Type Severity Reaction Status Date / Time No Known Allergies Allergy Verified 12/30/22 13:10 PFSH Acute PFSH: Medical History Coronary artery disease Diabetes mellitus Hypertension Obesity Surgical History Hx of carpal tunnel repair Hx of coronary artery bypass graft December 2021 Family History Other CAD (coronary artery disease) Diabetes Social History Smoking and tobacco status: former smoker Quit status (tobacco): has quit using tobacco Year quit tobacco: 2010 Former quit date comment: 35 pack year history Vitals/I&O/Wt Last Vital Signs Pulse 58 L 12/30/22 15:32 Resp 12 12/30/22 15:32 BP 137/63 12/30/22 15:32 Pulse Ox 94 12/30/22 15:32 O2 Del Method 12/30/22 12:12 Weight last 48 hrs Weight 99.79 kg Physical Exam Const: COMMON NORMALS: patient oriented x3 HENMT: COMMON NORMALS: normocephalic and atraumatic Resp: COMMON NORMALS: clear to auscultation bilaterally AUSCULTATION: clear to auscultation bilaterally Cardio: COMMON NORMALS: regular rate, regular rhythm, S1 normal heart sound present, S2 normal heart sound present, No gallops present (Cardio), No murmurs present (Cardio), No rub (Cardio) and Peripheral pulses 2+ throughout RATE: regular rate RHYTHM: regular rhythm HEART SOUNDS: S1 normal heart sound present and S2 normal heart sound present PERIPHERAL PULSES: Peripheral pulses 2+ throughout GI: COMMON NORMALS: Normal to inspection, nondistended, normoactive bowel sounds present, Soft to palpation, non-tender, No hepatosplenomegaly present and no masses AUSCULTATION: Yes normoactive bowel sounds PALPATION: Yes Soft to palpation and Yes No hepatosplenomegaly present RECTAL EXAM: Yes deferred Extremity: COMMON NORMALS: no clubbing, cyanosis or edema and no pedal edema Neuro: COMMON NORMALS: patient oriented x3 Data 12/30/22 14:47 12/30/22 12:17 A&P Assessment and plan (1) Coronary artery disease: Qualifiers: Associated angina: without angina Coronary Disease-Associated Artery/Lesion type: [place] artery [place] vs. transplanted heart: [place] heart Qualified Code(s): I25.10 - Atherosclerotic heart disease of [place] coronary artery without angina pectoris (2) Diabetes mellitus: Qualifiers: Diabetes mellitus complication status: without complication Diabetes mellitus assisted insulin use: without assisted use Diabetes mellitus type: type 2 Qualified Code(s): E11.9 - Type 2 diabetes mellitus without complications (3) Hypertension: Qualifiers: Hypertension type: primary hypertension Qualified Code(s): I10 - Essential (primary) hypertension (4) Obesity: Qualifiers: Body mass index: BMI 35.0-35.9 Obesity classification: adult class 2 (BMI 35 - 39.9) Obesity type: due to excess calories Serious obesity comorbidity presence: with serious comorbidity Qualified Code(s): E66.01 - Morbid (severe) obesity due to excess calories; Z68.35 - Body mass index [BMI] 35.0-35.9, adult (5) Acute kidney injury superimposed on CKD: (6) Hyponatremia: (7) Hypokalemia: (8) Chest pain: Plan 62 year old male with past medical history of hypertension, diabetes, coronary artery disease s/p CABG , came in from home with chief complaint of chest tightness as well as shoulder blade pain, started about 2 days back prior to the day of admission, was accompanied with some dizziness, mild shortness of breath, chest tightness was relieved with nitro patch. Assessment: Chest pain possibly cardiac in nature, given his extensive history of, coronary artery disease. 2D echo: Normal left ventricular size and systolic function, EF 66 %. Moderate left ventricular hypertrophy. Mild hypokinesia of the apical septal segment.?Mildly increased left atrial size.?Thickened aortic valve. Moderate aortic valve calcification.Minimal plaques were noted in the ascending aorta There is no pericardial effusion. Continue aspirin statin Plavix, Imdur has been added, sublingual nitro as needed. Cardiology on board, for possible coronary angiogram tomorrow in the morning LUCIEN: Possibly prerenal LUCIEN Admission serum creatinine 1.7, baseline serum creatinine is around: 0.7-0.9 Monitor BMP Avoid nephrotoxic's Continue IV hydration with normal saline at 100 cc an hour Monitor intake output charting Hypokalemia: Monitor and replace serum potassium History of hypertension: Continue amlodipine 10 mg p.o. History of diabetes: Currently on sliding scale insulin, monitor fingerstick glucose, diabetic diet History of coronary artery disease s/p CABG: Plan is 1 CODE STATUS: Full code DVT prophylaxis on heparin SC Attestations Medical Necessity Statement*: Patient is to be in hospital for management of chest pain, hyponatremia, LUCIEN. Anticipated length of stay greater than 2 midnights. Coding Level of Care Code 69677 Diagnoses Coronary artery disease I25.10 Associated angina: without angina Coronary Disease-Associated Artery/Lesion type: [place] artery [place] vs. transplanted heart: [place] heart Diabetes mellitus E11.9 Diabetes mellitus complication status: without complication Diabetes mellitus assisted insulin use: without assisted use Diabetes mellitus type: type 2 Hypertension I10 Hypertension type: primary hypertension Obesity E66.01; Z68.35 Body mass index: BMI 35.0-35.9 Obesity classification: adult class 2 (BMI 35 - 39.9) Obesity type: due to excess calories Serious obesity comorbidity presence: with serious comorbidity Acute kidney injury superimposed on CKD N17.9; N18.9 Hyponatremia E87.1 Hypokalemia E87.6 Chest pain R07.9
[2022-12-30 17:00] LABS: Glucose Point of Care 194 mg/dL (70-110)
[2022-12-30] MEDS: heparin 5,000 unit/mL INJ 1 mL 5000 UNIT SUBCUT (18:23)
[2022-12-30] MEDS: sodium chlor 0.9% + KCl 20 mEq 20 MEQ/1,000 ML BAG 100 MEQ IV (18:24)
[2022-12-30 19:14] LABS: Troponin 5 6HR 14.87 ng/L (0-15)
[2022-12-30 19:30] LABS: Troponin 5 6HR Delta -2.13 ng/L (0-12)
--- NOTE | 2022-12-30 20:02 | USCV_ITS ---
Tylor Cummings Age: 62 Gender: M : 1960 Exam Date: 12/30/2022 20:26 Ordering Phys: Nabil Cameron MD Technologist: JAMES Exam Location: [facility] [place] Indication: chest pain, s/p CABG 12/2021. BP: 131 / 62 HR: 55 Rhythm: Sinus bradycardia Technical Quality: Adequate MEASUREMENTS (Male / Female) Normal Values 2D ECHO LV Diastolic Diameter PLAX 4.5 cm 4.2 - 5.9 / 3.9 - 5.3 cm LV Systolic Diameter PLAX 2.8 cm IVS Diastolic Thickness 1.9 cm 0.6 - 1.0 / 0.6 - 0.9 cm IVS Systolic Thickness 1.9 cm LVPW Diastolic Thickness 1.7 cm 0.6 - 1.0 / 0.6 - 0.9 cm LVPW Systolic Thickness 2.3 cm LVOT Diameter 2.0 cm LV Ejection Fraction 2D Teich 67.3 % LV Ejection Fraction MOD 2C 63.3 % LV Ejection Fraction 2C AL 70.4 % LA Diameter 4.9 cm LA Width 3.9 cm LA Height 6.1 cm RA Width 3.9 cm RA Height 4.5 cm Aorta at Sinotubular Diameter 3.2 cm IVC Diameter 1.8 cm M-MODE Aortic Annulus Diameter 3.3 cm LA Ao Ratio MM 1.6 MV E Point Septal Separation 0.4 cm DOPPLER AV Peak Velocity 104.0 cm/s LVOT Peak Velocity 101.0 cm/s AV Area Cont Eq vti 3.0 cm squared AV Area Cont Eq pk 3.2 cm squared MV Peak Velocity 100.0 cm/s MV Area PHT 3.9 cm squared Mitral E to A Ratio 0.8 MV E' Velocity 41.5 cm/s Mitral E to MV E' Ratio 8.8 Mitral E to LV E' Lateral Ratio 6.5 Mitral E to LV E' Septal Ratio 13.8 TR Peak Velocity 255.5 cm/s TR Peak Gradient 26.1 mmHg TV Peak E Velocity 50.0 cm/s Right Atrial Pressure 10.0 mmHg Pulmonary Artery Systolic Pressu 36.1 mmHg PV Peak Velocity 113.0 cm/s RV Acceleration Time 0.1 s RV Ejection Time 0.4 s RV AcT/ET 0.2 FINDINGS Left Ventricle Normal left ventricular size and systolic function, EF 66 %. Moderate left ventricular hypertrophy. Mild hypokinesia of the apical septal segment. Right Ventricle The right ventricle is normal in size and function. Right Atrium The right atrium is normal in size. Left Atrium Mildly increased left atrial size. Mitral Valve No gross abnormalities noted Aortic Valve Thickened aortic valve. Moderate aortic valve calcification. Tricuspid Valve No gross abnormalities noted Pulmonic Valve No gross abnormalities noted Pericardium No pericardial effusion. Aorta Plaque seen in the ascending aorta. IVC Normal inferior vena cava. CONCLUSIONS Normal left ventricular size and systolic function, EF 66 %. Moderate left ventricular hypertrophy. Mild hypokinesia of the apical septal segment. Mildly increased left atrial size. Thickened aortic valve. Moderate aortic valve calcification. Minimal plaques were noted in the ascending aorta There is no pericardial effusion. There are no intracardiac masses. Compared to the study from 11/16/2018, there may not be a significant change Dr Mani Kirby MD FACC (Electronically Signed) Final Date: 30 December 2022 23:33 S
[2022-12-30 20:28] LABS: Glucose Point of Care 158 mg/dL (70-110)
[2022-12-30] MEDS: insulin lispro 100 unit/1 mL SUBCUT (21:16)
[2022-12-31] VITALS (13 sets, daily range): BP systolic 123–168; BP diastolic 61–72; PULSE 51–65; RESP 12–22; TEMP 36.4–36.8; O2SAT 90–98
[2022-12-31] MEDS: heparin 5,000 unit/mL INJ 1 mL 5000 UNIT SUBCUT ×2 (04:13→15:45)
[2022-12-31] MEDS: sodium chlor 0.9% + KCl 20 mEq 20 MEQ/1,000 ML BAG 100 MEQ IV (04:13)
[2022-12-31] MEDS: aspirin 81 mg EC Tablet PO (05:59)
[2022-12-31 06:38] LABS: Glucose Point of Care 217 mg/dL (70-110)
--- NOTE | 2022-12-31 08:28 | PM.CONSULT ---
Providers/Reason For Consult Consulting Physician/Specialty*: Raymond Beaulieu MD/ Cardiology Reason for Consult*: Chest pain Requesting Physician: Dr Cameron Attending Physician: Nabil Cameron MD Primary Care Provider: Alex Auguste DO History of Present Illness History of Present Illness Tylor Cummings is a 62 year old male with past medical history of coronary artery disease post CABG last year, hypertension who presented to the hospital with 2 days of on and off chest discomfort. It is substernal. Was associated with the shortness of breath and dizziness. Some diaphoresis. EKG is showing sinus rhythm with nonspecific ST-T wave changes. Troponins have not trended up. Nitro paste has improved chest discomfort. ECHO showed preserved LV systolic function. His creatinine is elevated. Review of Systems General: Reports: 10 or more systems reviewed and unremarkable except in HPI and below Const: Denies: fever(s), chills, body aches, change in appetite or diaphoresis Card: Reports: chest pain and dyspnea on exertion; Denies: palpitations, edema, swelling of feet/ankles, orthopnea or leg pain with exertion Resp: Denies: dyspnea, productive cough, wheezing or pain on inspiration GI: Denies: abdominal pain, nausea, vomiting, diarrhea or constipation : Denies: flank pain or difficulty urinating Musc: Denies: back pain, extremity pain or extremity swelling Neuro: Denies: headache(s), difficulty walking or confusion Medications/Allergies Home Medications Medication Instructions Recorded Confirmed Last Taken Type aspirin 81 mg tablet,delayed 81 mg PO QAM 11/04/21 12/30/22 12/30/22 History release cinnamon bark 500 mg capsule 500 mg PO BID 11/04/21 12/30/22 12/30/22 History (Cinnamon) tamsulosin 0.4 mg capsule 0.4 mg PO DAILY 04/02/22 12/30/22 12/30/22 History clopidogrel 75 mg tablet 75 mg PO DAILY 05/06/22 12/30/22 12/30/22 History isosorbide mononitrate 60 mg 60 mg PO DAILY 05/06/22 12/30/22 12/30/22 History tablet,extended release 24 hr amlodipine 10 mg tablet 10 mg PO DAILY for bp #90 tabs 08/07/22 12/30/22 12/30/22 Rx atorvastatin 80 mg tablet 80 mg PO DAILY 10/13/22 12/30/22 12/30/22 History hydrochlorothiazide 50 mg tablet 50 mg PO DAILY 10/13/22 12/30/22 12/30/22 History lisinopril 40 mg tablet 40 mg PO DAILY 10/13/22 12/30/22 12/30/22 History potassium chloride 10 mEq 10 meq PO DAILY #30 caps 10/15/22 12/30/22 Unknown Rx capsule,extended release amiodarone 200 mg tablet 200 mg PO DAILY 12/30/22 12/30/22 12/30/22 History carvedilol 25 mg tablet 25 mg PO DAILY for heart 12/30/22 12/30/22 12/30/22 History metformin 1,000 mg tablet 500 mg PO BID 12/30/22 12/30/22 12/30/22 History Allergies Allergy/AdvReac Type Severity Reaction Status Date / Time No Known Allergies Allergy Verified 12/30/22 13:10 Current Medications Generic Name Dose Route Start Last Admin Trade Name Freq PRN Reason Stop Dose Admin Aspirin 81 mg 12/31/22 06:00 12/31/22 05:59 Aspirin 81 Mg Ec Tablet PO 81 mg QAM CHRISTIANA Administration Heparin Sodium (Porcine) 5,000 unit 12/30/22 15:45 12/31/22 04:13 Heparin 5,000 Unit/Ml Inj 1 Ml SUBCUT 5,000 unit Q12H CHRISTIANA Administration Potassium Chloride/Sodium Chloride 20 meq in 1,000 mls @ 100 mls/hr 12/30/22 15:45 12/31/22 04:13 Sodium Chlor 0.9% + Kcl 20 Meq IV 100 mls/hr .Q10H CHRISTIANA Administration Insulin Human Lispro 0 unit 12/30/22 18:00 12/30/22 21:20 Insulin Lispro 100 Unit/1 Ml SUBCUT Not Given WM&BEDTIME CHRISTIANA Protocol PFSH Acute PFSH: Medical History Coronary artery disease Diabetes mellitus Hypertension Obesity Surgical History Hx of carpal tunnel repair Hx of coronary artery bypass graft December 2021 Family History Other CAD (coronary artery disease) Diabetes Social History Smoking and tobacco status: former smoker Quit status (tobacco): has quit using tobacco Year quit tobacco: 2010 Former quit date comment: 35 pack year history Vitals/I&O/Wt Last Vital Signs Temp 97.6 F 12/31/22 07:04 Pulse 51 L 12/31/22 07:04 Resp 18 12/31/22 07:04 BP 140/61 12/31/22 07:04 Pulse Ox 96 12/31/22 07:04 O2 Del Method 12/31/22 07:04 12/30/22 12/31/22 12/31/22 22:59 06:59 14:59 Intake Total 240 / 240 1231.667 / 1471.667 Balance 240 / 240 1231.667 / 1471.667 Weight last 48 hrs Weight 229 lb 11.2 oz Weight 220 lb Physical Exam Narrative: GENERAL: Patient is alert, awake and oriented x3. [] NECK: No jugular vein distension. [] HEENT: No cyanosis. No icterus. No pallor. [] HEART: Regular S1 and S2. No murmur, rub or gallop. [] LUNGS: Clear to auscultate bilaterally. [] CENTRAL NERVOUS SYSTEM: Grossly nonfocal. [] EXTREMITIES: Lower extremities with 1+ edema bilaterally. Data 12/30/22 14:47 12/30/22 12:17 A&P Assessment and plan (1) Chest pain: (2) Hyperlipidemia: Qualifiers: Hyperlipidemia type: pure hypercholesterolemia Qualified Code(s): E78.00 - Pure hypercholesterolemia, unspecified (3) Coronary artery disease: Qualifiers: Coronary Disease-Associated Artery/Lesion type: [place] artery [place] vs. transplanted heart: [place] heart Associated angina: without angina Qualified Code(s): I25.10 - Atherosclerotic heart disease of [place] coronary artery without angina pectoris (4) Acute kidney injury superimposed on CKD: (5) Diabetes mellitus: Qualifiers: Diabetes mellitus type: type 2 Diabetes mellitus medical terminologist insulin use: without medical terminologist use Diabetes mellitus complication status: without complication Qualified Code(s): E11.9 - Type 2 diabetes mellitus without complications (6) Obesity: Qualifiers: Obesity type: due to excess calories Obesity classification: adult class 2 (BMI 35 - 39.9) Serious obesity comorbidity presence: with serious comorbidity Body mass index: BMI 35.0-35.9 Qualified Code(s): E66.01 - Morbid (severe) obesity due to excess calories; Z68.35 - Body mass index [BMI] 35.0-35.9, adult (7) Hypertension: Qualifiers: Hypertension type: primary hypertension Qualified Code(s): I10 - Essential (primary) hypertension Plan Patient with significant CAD history has presented with atypical chest pain symptoms worsening for 2 days. Symptoms are consistent with unstable angina. We will proceed with coronary angiogram with possible percutaneous coronary intervention. N.p.o. after midnight Patient will need IV hydration as has LUCIEN Monitor renal function Echocardiogram has been done. LV systolic function is preserved. Thank you for involving us with care of this patient. We will continue to follow. Please call with questions. Consult Attestations Medical Necessity Statement: Care expected to cross 2 midnights. Coding Level of Care Code Acute Code for [facility] Diagnoses Chest pain R07.9 Hyperlipidemia E78.00 Hyperlipidemia type: pure hypercholesterolemia Coronary artery disease I25.10 Coronary Disease-Associated Artery/Lesion type: [place] artery [place] vs. transplanted heart: [place] heart Associated angina: without angina Acute kidney injury superimposed on CKD N17.9; N18.9 Diabetes mellitus E11.9 Diabetes mellitus type: type 2 Diabetes mellitus medical terminologist insulin use: without medical terminologist use Diabetes mellitus complication status: without complication Obesity E66.01; Z68.35 Obesity type: due to excess calories Obesity classification: adult class 2 (BMI 35 - 39.9) Serious obesity comorbidity presence: with serious comorbidity Body mass index: BMI 35.0-35.9 Hypertension I10 Hypertension type: primary hypertension
[2022-12-31] MEDS: insulin lispro 100 unit/1 mL SUBCUT ×4 (08:51→20:55)
[2022-12-31] MEDS: amiodarone 200 mg Tablet PO (08:52)
[2022-12-31] MEDS: atorvastatin 40 mg Tablet 80 MG PO (08:52)
[2022-12-31] MEDS: clopidogrel 75 mg Tablet PO (08:52)
[2022-12-31] MEDS: amlodipine 10 mg Tablet PO (08:52)
[2022-12-31] MEDS: isosorbide mononitrate ER 30 mg Tablet PO (08:52)
[2022-12-31] MEDS: tamsulosin 0.4 mg Capsule PO (08:52)
[2022-12-31 09:02] LABS: Basophils # 0.1 10^3/uL (0.0-0.1); Basophils % 1.2 %; Eosinophils # 0.2 10^3/uL (0.0-0.8); Eosinophils % 3.5 %; Hematocrit 43.7 % (42.0-52.0); Hemoglobin 13.7 g/dL (11.7-16.6); Lymphocytes # 1.3 10^3/uL (0.8-4.8); Lymphocytes % 25.4 %; Mean Corpuscular HGB Conc 31.4 g/dL (30.0-36.0); Mean Corpuscular Hemoglobin 25.5 pg (28.0-34.0); Mean Corpuscular Volume 81.2 fl (80-94); Monocytes # 0.4 10^3/uL (0.2-0.9); Monocytes % 7.7 %; Neutrophils # 3.22 10^3/uL (1.8-7.7); Nucleated Red Blood Cells % 0 %; Platelet Count 211 10^3/cmm (130-400); Red Blood Count 5.38 10^6/uL (4.1-5.3); White Blood Count 5.2 10^3/uL (4.0-10.0)
[2022-12-31] MEDS: potassium chloride ER 10 mEq Tablet PO (09:09)
[2022-12-31 09:21] LABS: Alanine Aminotransferase 13 U/L (0-41); Alkaline Phosphatase 93 U/L (40-130); Blood Urea Nitrogen 20 mg/dL (8-23); Calcium 9.3 mg/dL (8.5-10.5); Carbon Dioxide 22 mmol/L (22-29); Chloride 102 mmol/L (98-107); Globulin 3.2 g/dL (1.3-4.6); Glucose 187 mg/dL (65-115); Osmolality Calculated 288 mOsm/kg (285-295); Sodium 135 mmol/L (136-145); Total Bilirubin 0.5 mg/dL (0.15-1.2); Total Protein 7.2 g/dL (6.6-8.7)
[2022-12-31 09:23] LABS: Aspartate Amino Transferase 20 U/L (0-40)
--- NOTE | 2022-12-31 09:29 | PC.CHAP ---
Pastoral Care Encounter/Spiritual Assessment Type of Contact [] Declined x ray developer visit [] Patient/Family/Request visit [] Outpatient visit [] Follow-up visit [] Physician referral [] Code/Alert [x] Routine visit [] Staff referral [] Actively dying [] Patient sleeping [] Family support [] [] Out of room [] Palliative care [] [] Receiving care in room [] Pre-surgical visit [] Trauma [] Long length of stay [] ICU visit [] Other: Relational/Emotional Strength [x] Patient feels connected with others/family/visitors/staff [] Distress [] Loneliness/isolation [] Abandonment Spirituality of Patient [x] Person of Alisha [] Attends Mandaeism of their Alisha [] Believes in Prayer [] Reads Bible or Pentecostal materials [] There are Spiritual issues to be addressed Chronometer Tester Interventions [] Prayer [x] Active listening [x] Non-anxious presence [x] Spiritual/emotional support [] Crisis/trauma care [] Spiritual counseling [] Bereavement support [] Provided bereavement packet [] Provided Bible/devotional materials [] Provided toy/stuffed animal, coloring book to patient or family member [] Provided Communion [] Anointing/[place] [] Salvation [x] Completed spiritual assessment [] Other: Impact on Illness or Injury [] Angry [] Fearful [] Anxious [] Often cries [] Exhaustion [] Unable to work [] Unable to attend congregation [] Unable to walk/stand [] Unable to read [] Unable to drive [] Unable to eat/drink [] Unable to sleep [] Unable to be with family [] Patient intubated [] Other: Summary Visit ended with staff coming in to work on PT Time spent with patient 10m
[2022-12-31 11:40] LABS: Glucose Point of Care 290 mg/dL (70-110)
[2022-12-31 12:04] LABS: Urine Appearance Clear (CLEAR); Urine Color Yellow (Yellow); pH Urine 5 (5-7)
[2022-12-31 12:05] LABS: Add Urine Microscopic? YES; Bilirubin Urine Neg (Negative); Blood Urine Trace (Negative); Glucose Urine UA 4+ (Normal); Ketones Urine 1+ (Negative); Leukocyte Esterase Urine Trace (Negative); Nitrate Urine Negative (Negative); Protein Urine Neg (Negative); Urobilinogen Urine Norm (Negative)
[2022-12-31 12:07] LABS: Bacteria Urine TRACE /hpf; RBC Urine RARE /hpf (0-2); Squamous Epithelial Cell Urine 0-4 /hpf (0-5); WBC Urine 0-4 /hpf (0-5)
--- NOTE | 2022-12-31 13:57 | PM.PN ---
Subjective Subjective: Patient was seen and examined this morning, denied any chest pain. LUCIEN has resolved. Hypokalemia is resolved. Medications: Medication Review Details: Generic Name Dose Route Start Last Admin Trade Name Mady PRN Reason Stop Dose Admin Amiodarone HCl 200 mg 12/31/22 09:00 12/31/22 08:52 Amiodarone 200 M g Tablet PO 200 mg DAILY CHRISTIANA Administration Amlodipine Besylat e 10 mg 12/31/22 09:00 12/31/22 08:52 Amlodipine 10 Mg Tablet PO 10 mg DAILY CHRISTIANA Administration Aspirin 81 mg 12/31/22 06:00 12/31/22 05:59 Aspirin 81 Mg Ec Tablet PO 81 mg QAM CHRISTIANA Administration Atorvastatin Calci um 80 mg 12/31/22 09:00 12/31/22 08:52 Atorvastatin 40 Mg Tablet PO 80 mg DAILY CHRISTIANA Administration Clopidogrel Bisulf ate 75 mg 12/31/22 09:00 12/31/22 08:52 Clopidogrel 75 M g Tablet PO 75 mg DAILY CHRISTIANA Administration Heparin Sodium (Po rcine) 5,000 unit 12/30/22 15:45 12/31/22 04:13 Heparin 5,000 Un it/Ml Inj 1 Ml SUBCUT 5,000 unit Q12H CHRISTIANA Administration Insulin Human Lisp ro 0 unit 12/30/22 18:00 12/31/22 12:39 Insulin Lispro 1 00 Unit/1 Ml SUBCUT 8 unit WM&BEDTIME CHRISTIANA Administration Protocol Isosorbide Mononit rate 30 mg 12/31/22 09:00 12/31/22 08:52 Isosorbide [place] itrate Er 30 Mg Ta blet PO 30 mg DAILY CHRISTIANA Administration Potassium Chloride 10 meq 12/31/22 09:00 12/31/22 09:09 Potassium Chlori de Er 10 Meq Table t PO 10 meq DAILY CHRISTIANA Administration Tamsulosin HCl 0.4 mg 12/31/22 09:00 12/31/22 08:52 Tamsulosin 0.4 M g Capsule PO 0.4 mg DAILY CHRISTIANA Administration Vitals/I&O/Wt Last Vital Signs Temp 97.7 F 12/31/22 11:08 Pulse 62 12/31/22 11:08 Resp 16 12/31/22 11:08 BP 134/72 12/31/22 11:08 Pulse Ox 92 12/31/22 11:08 O2 Del Method 12/31/22 11:08 12/30/22 12/31/22 12/31/22 22:59 06:59 14:59 Intake Total 240 / 240 1231.667 / 1471.667 360 / 360 Balance 240 / 240 1231.667 / 1471.667 360 / 360 Weight last 48 hrs Weight 104.19 kg Weight 99.79 kg Physical Exam Const: COMMON NORMALS: patient oriented x3 HENMT: COMMON NORMALS: normocephalic and atraumatic HEAD & SCALP: normocephalic and atraumatic Resp: COMMON NORMALS: clear to auscultation bilaterally AUSCULTATION: clear to auscultation bilaterally Cardio: COMMON NORMALS: regular rate, regular rhythm, S1 normal heart sound present, S2 normal heart sound present, No gallops present (Cardio), No murmurs present (Cardio), No rub (Cardio) and Peripheral pulses 2+ throughout RATE: regular rate RHYTHM: regular rhythm HEART SOUNDS: S1 normal heart sound present and S2 normal heart sound present PERIPHERAL PULSES: Peripheral pulses 2+ throughout GI: COMMON NORMALS: Normal to inspection, nondistended, normoactive bowel sounds present, Soft to palpation, non-tender, No hepatosplenomegaly present and no masses AUSCULTATION: Yes normoactive bowel sounds PALPATION: Yes Soft to palpation and Yes No hepatosplenomegaly present RECTAL EXAM: Yes deferred Extremity: COMMON NORMALS: no clubbing, cyanosis or edema and no pedal edema Neuro: COMMON NORMALS: patient oriented x3 Data 12/31/22 08:32 12/31/22 08:32 A&P Assessment and plan (1) Coronary artery disease: Qualifiers: Coronary Disease-Associated Artery/Lesion type: [place] artery [place] vs. transplanted heart: [place] heart Associated angina: without angina Qualified Code(s): I25.10 - Atherosclerotic heart disease of [place] coronary artery without angina pectoris (2) Diabetes mellitus: Qualifiers: Diabetes mellitus type: type 2 Diabetes mellitus intermediate manager insulin use: without [facility] use Diabetes mellitus complication status: without complication Qualified Code(s): E11.9 - Type 2 diabetes mellitus without complications (3) Hypertension: Qualifiers: Hypertension type: primary hypertension Qualified Code(s): I10 - Essential (primary) hypertension (4) Obesity: Qualifiers: Obesity type: due to excess calories Obesity classification: adult class 2 (BMI 35 - 39.9) Serious obesity comorbidity presence: with serious comorbidity Body mass index: BMI 35.0-35.9 Qualified Code(s): E66.01 - Morbid (severe) obesity due to excess calories; Z68.35 - Body mass index [BMI] 35.0-35.9, adult (5) Acute kidney injury superimposed on CKD: (6) Hyponatremia: (7) Hypokalemia: (8) Chest pain: Plan 62 year old male with past medical history of hypertension, diabetes, coronary artery disease s/p CABG , came in from home with chief complaint of chest tightness as well as shoulder blade pain, started about 2 days back prior to the day of admission, was accompanied with some dizziness, mild shortness of breath, chest tightness was relieved with nitro patch. Assessment: Chest pain possibly cardiac in nature, given his extensive history of, coronary artery disease. 2D echo: Normal left ventricular size and systolic function, EF 66 %. Moderate left ventricular hypertrophy. Mild hypokinesia of the apical septal segment.?Mildly increased left atrial size.?Thickened aortic valve. Moderate aortic valve calcification.Minimal plaques were noted in the ascending aorta There is no pericardial effusion. Continue aspirin statin Plavix, Imdur has been added, sublingual nitro as needed. Cardiology on board, for possible coronary angiogram tomorrow in the morning LUCIEN: Possibly prerenal LUCIEN Admission serum creatinine 1.7, baseline serum creatinine is around: 0.7-0.9 Monitor BMP Avoid nephrotoxic's Continue IV hydration with normal saline at 100 cc an hour Monitor intake output charting Hypokalemia: Monitor and replace serum potassium History of hypertension: Continue amlodipine 10 mg p.o. History of diabetes: Currently on sliding scale insulin, monitor fingerstick glucose, diabetic diet History of coronary artery disease s/p CABG: Plan is 1 CODE STATUS: Full code DVT prophylaxis on heparin SC Attestations Medical Necessity Statement*: Needs to be in hospital for chest pain work-up, and for possible CAG Coding Level of Care Code 71789 Diagnoses Coronary artery disease I25.10 Coronary Disease-Associated Artery/Lesion type: [place] artery [place] vs. transplanted heart: [place] heart Associated angina: without angina Diabetes mellitus E11.9 Diabetes mellitus type: type 2 Diabetes mellitus [facility] insulin use: without intermediate manager use Diabetes mellitus complication status: without complication Hypertension I10 Hypertension type: primary hypertension Obesity E66.01; Z68.35 Obesity type: due to excess calories Obesity classification: adult class 2 (BMI 35 - 39.9) Serious obesity comorbidity presence: with serious comorbidity Body mass index: BMI 35.0-35.9 Acute kidney injury superimposed on CKD N17.9; N18.9 Hyponatremia E87.1 Hypokalemia E87.6 Chest pain R07.9
[2022-12-31] MEDS: sodium chloride 0.9% 1,000 ML 75 ML IV (14:39)
[2022-12-31 16:29] LABS: Glucose Point of Care 163 mg/dL (70-110)
[2022-12-31 20:36] LABS: Glucose Point of Care 231 mg/dL (70-110)
[2023-01-01] VITALS (17 sets, daily range): BP systolic 122–152; BP diastolic 57–83; PULSE 51–70; RESP 9–24; TEMP 36.5–36.8; O2SAT 91–98
[2023-01-01] MEDS: heparin 5,000 unit/mL INJ 1 mL 5000 UNIT SUBCUT ×2 (03:17→16:14)
[2023-01-01] MEDS: sodium chloride 0.9% 1,000 ML 75 ML IV (03:17)
[2023-01-01 04:45] LABS: Basophils % 0.9 %; Eosinophils # 0.1 10^3/uL (0.0-0.8); Hematocrit 37.4 % (42.0-52.0); Hemoglobin 11.8 g/dL (11.7-16.6); Lymphocytes # 1.6 10^3/uL (0.8-4.8); Lymphocytes % 33.3 %; Mean Corpuscular HGB Conc 31.6 g/dL (30.0-36.0); Mean Corpuscular Volume 82.4 fl (80-94); Mean Platelet Volume 10.1 fL (7.4-10.4); Monocytes # 0.4 10^3/uL (0.2-0.9); Monocytes % 8.2 %; Neutrophils # 2.53 10^3/uL (1.8-7.7); Neutrophils % 54.2 %; Nucleated Red Blood Cells % 0 %; Platelet Count 187 10^3/cmm (130-400); Red Blood Count 4.54 10^6/uL (4.1-5.3); Red Cell Distribution Width 15.1 % (12.1-15.1); White Blood Count 4.7 10^3/uL (4.0-10.0)
[2023-01-01 05:11] LABS: Alanine Aminotransferase 10 U/L (0-41); Albumin Level 3.4 g/dL (3.5-5.2); Alkaline Phosphatase 88 U/L (40-130); Anion Gap 12.4 (5-19); Aspartate Amino Transferase 12 U/L (0-40); Blood Urea Nitrogen 14 mg/dL (8-23); Calcium 8.4 mg/dL (8.5-10.5); Carbon Dioxide 21 mmol/L (22-29); Chloride 104 mmol/L (98-107); Globulin 2.7 g/dL (1.3-4.6); Glomerular Filtration Rate 85.8 mL/min (90-130); Glucose 178 mg/dL (65-115); Osmolality Calculated 283 mOsm/kg (285-295); Potassium 3.4 mmol/L (3.5-5.1); Sodium 134 mmol/L (136-145); Total Bilirubin 0.3 mg/dL (0.15-1.2); Total Protein 6.1 g/dL (6.6-8.7)
[2023-01-01] MEDS: aspirin 81 mg EC Tablet PO (05:26)
[2023-01-01 06:30] LABS: Glucose Point of Care 179 mg/dL (70-110)
[2023-01-01] MEDS: diphenhydrAMINE 50 mg Capsule PO (08:54)
--- NOTE | 2023-01-01 09:00 | XACV_ITS ---
Exam Room: [facility] Ht: 175 cm Wt: 56 kg BSA: 1.64 m2 Gender: Male : 1960 Exam Priority: Routine Procedure(s): Procedure Description: Diagnostic procedure Procedure Description: Left Heart Catheterization Procedure Description: Coronary Angiography Diagnostic Cath Status: Urgent Diagnostic Findings * Severe multivessel [place] coronary artery disease. * Bypass grafts: CAPPS to LAD: It is atretic graft that is occluded in the midsegment. SVG to RCA: Patent SVG to OM: Occluded Jump SVG graft to 2 diagonal arteries 1 limb patent and other is occluded. This graft backfills LAD. . * Left main artery: Has * mild to moderate distal vessel stenosis. LAD: Proximally occluded. Left circumflex artery: Has ostial to proximal 60 to 70% stenosis. OM branches are occluded. RCA: Mid vessel occlusion.. * Coronary angiography shows right dominance. PCI Status: Elective Conclusions 1. SVG to RCA is patent. SVG to OM and CAPPS to LAD are occluded. Jump SVG to first and second diagonal arteries. Only one limb is patent and that backfills the LAD. 2. Severe multivessel [place] coronary artery disease. 3. Patient has prior CABG. Recommendations * Patient has severe coronary artery disease. However is chest pain free. We will recommend medical therapy but outpatient referral to CT surgery for consideration regarding redo CABG. 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 * Ouatpatient cardiology follow up in 2 weeks. Interventional RX Recommendation: medical therapy and/or counseling Diagnostic RX Recommendation: medical therapy and/or counseling Pressures Phase:Rest AO : 122 / 66 ( 92 ) @ 10:47:00 AM 139 / 61 ( 90 ) @ 11:07:00 AM 180 / 72 ( 103 ) @ 11:13:00 AM LV : 178 / -12 / 19 @ 11:13:00 AM 180 / -14 / 15 @ 11:13:00 AM Valves Phase:DefaultPhase AV : 0.0 @ 10:53:41 AM 0.0 @ 10:53:41 AM AV Mean Gradient: 0.0 @ 10:53:41 AM 0.0 @ 10:53:41 AM Clinical Evaluation EBL: 5mL-10mL Procedural Details Procedure Consent Obtained. Admit Source: In Patient. Pre-Procedure Time Out. Identified patient by full name and date of as verbalized by the patient/guarantor. Does the consent match the physician's order: Yes. Accurate & Complete Informed Consent: Yes. Inpatient/Outpatient History & Physical on Chart: Yes. If H&P is completed, is and addenduem needed: No; If yes, is the addendum complete: N/A. Visualize and Verify Site with Patient/Guarantor: N/A. Relevant Radiology Images available: N/A. The risks, benefits, and alternatives of sedation and/or procedure were discussed by physician. The patient agrees to continue. Procedure started. Correct patient, site and procedure confirmed by cath team. Current diagnosis: worsening angina. PERRLA. Strong, equal hand automotive window tinter bilaterally. Lungs clear x 5 lobes. IV Site on Arrival: 20 gauge in the left hand. IV Site on Arrival: 20 gauge in the right forearm. IV Fluids: 0.9% NaCl at KVO. 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 Pre Procedural Pulses: bilateral dorsalis pedis was 3+. Pre Procedural Pulses: bilateral posterior tibial was 3+. Pre Procedural Pulses: bilateral radial was 3+. Oxygen started at 2liters/min via nasal canula. bilateral groins was prepped with chloroprep then draped in the usual sterile fashion. Baseline sample Acquired. HR: 52 BPM. Physician notified. [facility] Clinical Fraility Score: 3: Managing Well. 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 Chest Pain Symptom Assessment: Typical Angina Symptoms. Cardiovascular Instability: N/A,. Physician arrived. Physician scrubbed in. Immediate Pre-Procedure Time Out. Correct Patient: Yes; Correct Procedure: Yes; Correct Site: Yes; Correct Patient Position: Yes; Correct Supplies: Yes; Dried Flammable Prep: Yes; Blood Products Available: N/A;. Lidocaine 1% infiltrated to the right groin. Arterial access obtained with micropuncture set. A 5 [place] JL4 catheter in over wire. Multiple views taken of left coronary artery. Catheter out. A 5 [place]au[place] JR4 catheter in over wire. Multiple views taken of right coronary artery. SVG to Circumflex occluded. SVG's to RCA visualized and patent. SVG's to Diaganol visualized and patent. Redirecting catheter to the CAPPS. CAPPS to LAD visualized. Standard echange wire inserted. A 5 palauan IM catheter in over wire. CAPPS visualized. Catheter out. A 5 palauan AL1 catheter in over wire. SVG's to Diaganol visualized. Catheter out. A 5 palau[place] JR4 catheter in over wire. Directing to the LINDA. Atempting to cross the valve with JR4. Pullback taken: LV 180/-15,15; AO 180/72(103); Mean: 0mmHg, Peak to Peak: 0mmHg, SEP: 14sec/min; HR: 56 BPM; SpO2: 96%. Catheter out. A Right femoral angiogram was performed to determine safe placement of closure device. Physician review of cine films. A Manual Compression was successful obtaining hemostatsis at the Right Femoral artery insertion site. PERRLA. Strong, equal hand automotive window tinter bilaterally. No VTE prophylaxis required. Post-op diagnosis: Severe multivessel CAD. Complications: none. Estimated blood loss: 5mL-10mL. Airway - Unaffected, no intervention required; spontaneous ventilation. Circulation: W/N/L, pulses unchanged. Nausea/Vomiting: No. Medication's Wasted: Nitro = 50 mg. Medication's Wasted: Heparin = 4000 units. Total IV fluids: 65 mL. Procedure completed. Patient transferred by bed to 1st floor. Vital chart was stopped. Access Site Site: Right Femoral artery Sheath Size: 6 Fr Hemostasis Method: Manual Compression Hemostasis Success: Successful Procedure Medications Start: 9:42 AM Stop: 9:42 AM Medication: Versed Amount: 1 mg Route: I.V. Start: 9:42 AM Stop: 9:42 AM Medication: Fentanyl Amount: 50 mcg Route: I.V. Start: 10: AM Stop: 10: AM Medication: Fentanyl Amount: 50 mcg Route: I.V. Start: : AM Stop: : AM Medication: Versed Amount: 1 mg Route: I.V. Start: 10:24 AM Stop: :24 AM Medication: Hydralazine Amount: 10 mg Route: I.V. I, the attending physician, have reviewed and verified all procedure medications. Yes, all medications given per verbal order History/Risk Factors Hypertension: Yes Dyslipidemia: Yes Peripheral Arterial Disease (PAD): No Myocardial Infarction (NC): No Obesity: No Tobacco Use: Former Prior Interventions PCI: No CABG: Yes Valve Surgery: No Report Signatures Finalized by Raymond Beaulieu MD on 01/11/2023 01:42 PM
--- NOTE | 2023-01-01 09:36 | W.PM.OPSUD ---
Surgery/Procedure H&P Update DATE OF PROCEDURE: January 01, 2023 DATE H&P PERFORMED: 12/31/22 H&P UPDATE INFORMATION: I have reviewed H&P completed within last 30 days, I have examined patient prior to procedure and No changes to prior documentation PREOP DIAGNOSIS: Unstable angina PRIMARY INDICATION FOR PROCEDURE: Unstable angina PLANNED PROCEDURE: Left heart cath with possible percutaneous coronary intervention PATIENT REASSESSED PRIOR TO SEDATION, WITH NO CHANGE NOTED: Yes PHYSICAL EXAM: alert, oriented x 3, clear to auscultation bilaterally and regular rate & rhythm AIRWAY EVAL/ANESTHESIA PLAN: normal airway, ASA III, Local Anesthesia, Risks, benefits & alternatives of sedation and/or procedure discussed and Patient agrees to continue as planned ADDITIONAL INFORMATION: Moderate sedation
--- NOTE | 2023-01-01 10:29 | PM.PN ---
Subjective Subjective: Coronary angiogram was performed that showed atretic CAPPS, occluded SVG to OM, patent SVG to RCA and jump SVG graft to diagonal/LAD. No chest pain at this time. Vitals/I&O/Wt Last Vital Signs Temp 98.2 F 01/01/23 04:58 Pulse 56 L 01/01/23 08:00 Resp 19 H 01/01/23 08:00 BP 139/72 01/01/23 08:00 Pulse Ox 95 01/01/23 04:58 O2 Del Method 01/01/23 08:00 12/31/22 01/01/23 01/01/23 22:59 06:59 14:59 Intake Total 340 / 1600 972.5 / 2572.5 Balance 340 / 1600 972.5 / 2572.5 Weight last 48 hrs Weight 234 lb 1.6 oz Weight 229 lb 11.2 oz Weight 220 lb Physical Exam Narrative: GENERAL: Patient is alert, awake and oriented x3. [] NECK: No jugular vein distension. [] HEENT: No cyanosis. No icterus. No pallor. [] HEART: Regular S1 and S2. No murmur, rub or gallop. [] LUNGS: Clear to auscultate bilaterally. [] CENTRAL NERVOUS SYSTEM: Grossly nonfocal. [] EXTREMITIES: Lower extremities with 1+ edema bilaterally. Data 01/01/23 03:58 01/01/23 03:58 A&P Assessment and plan (1) Chest pain: (2) Hyperlipidemia: Qualifiers: Hyperlipidemia type: pure hypercholesterolemia Qualified Code(s): E78.00 - Pure hypercholesterolemia, unspecified (3) Coronary artery disease: Qualifiers: Coronary Disease-Associated Artery/Lesion type: [place] artery [place] vs. transplanted heart: [place] heart Associated angina: without angina Qualified Code(s): I25.10 - Atherosclerotic heart disease of [place] coronary artery without angina pectoris (4) Acute kidney injury superimposed on CKD: (5) Diabetes mellitus: Qualifiers: Diabetes mellitus type: type 2 Diabetes mellitus care home insulin use: without terminologist use Diabetes mellitus complication status: without complication Qualified Code(s): E11.9 - Type 2 diabetes mellitus without complications (6) Obesity: Qualifiers: Obesity type: due to excess calories Obesity classification: adult class 2 (BMI 35 - 39.9) Serious obesity comorbidity presence: with serious comorbidity Body mass index: BMI 35.0-35.9 Qualified Code(s): E66.01 - Morbid (severe) obesity due to excess calories; Z68.35 - Body mass index [BMI] 35.0-35.9, adult (7) Hypertension: Qualifiers: Hypertension type: primary hypertension Qualified Code(s): I10 - Essential (primary) hypertension Plan Above mentioned coronary anatomy. We will uptitrate medical therapy. Increase dose of imdur If in future, continues having chest pain, may benefit from PCI of ostial LCx however it is a calcified medium sized vessel so medical therapy is appropriate currently. Renal function is stable. Echocardiogram has been done. LV systolic function is preserved. Thank you for involving us with care of this patient. We will continue to follow. Please call with questions. Attestations Medical Necessity Statement*: Care expected to cross 2 midnights. Coding Level of Care Code Acute Code for [facility] Diagnoses Chest pain R07.9 Hyperlipidemia E78.00 Hyperlipidemia type: pure hypercholesterolemia Coronary artery disease I25.10 Coronary Disease-Associated Artery/Lesion type: [place] artery [place] vs. transplanted heart: [place] heart Associated angina: without angina Acute kidney injury superimposed on CKD N17.9; N18.9 Diabetes mellitus E11.9 Diabetes mellitus type: type 2 Diabetes mellitus care home insulin use: without terminologist use Diabetes mellitus complication status: without complication Obesity E66.01; Z68.35 Obesity type: due to excess calories Obesity classification: adult class 2 (BMI 35 - 39.9) Serious obesity comorbidity presence: with serious comorbidity Body mass index: BMI 35.0-35.9 Hypertension I10 Hypertension type: primary hypertension
[2023-01-01] MEDS: isosorbide mononitrate ER 30 mg Tablet PO (12:09)
[2023-01-01] MEDS: amiodarone 200 mg Tablet PO (12:09)
[2023-01-01] MEDS: tamsulosin 0.4 mg Capsule PO (12:09)
[2023-01-01] MEDS: amlodipine 10 mg Tablet PO (12:10)
[2023-01-01] MEDS: atorvastatin 40 mg Tablet 80 MG PO (12:10)
[2023-01-01] MEDS: potassium chloride ER 10 mEq Tablet PO (12:10)
[2023-01-01] MEDS: clopidogrel 75 mg Tablet PO (12:10)
[2023-01-01 12:22] LABS: Glucose Point of Care 147 mg/dL (70-110)
[2023-01-01] MEDS: insulin lispro 100 unit/1 mL SUBCUT ×2 (13:14→17:25)
[2023-01-01] MEDS: sodium chloride 0.9% 1,000 ML 100 ML IV (13:15)
--- NOTE | 2023-01-01 16:20 | P.DS_ITS ---
Discharge Providers Date of Admission: 12/30/22 16:07 Date of Discharge: January 01, 2023 Attending Provider at Admission: Nabil Cameron MD Attending Provider at Discharge: Nabil Cameron MD Primary Care Provider: Alex Auguste DO Diagnoses at Discharge Discharge Diagnosis (1) Chest pain: Status: Acute (2) Hyperlipidemia: Status: Acute Qualifiers: Hyperlipidemia type: pure hypercholesterolemia Qualified Code(s): E78.00 - Pure hypercholesterolemia, unspecified (3) Coronary artery disease: Status: Acute Qualifiers: Associated angina: without angina Coronary Disease-Associated Artery/Lesion type: [place] artery [place] vs. transplanted heart: [place] heart Qualified Code(s): I25.10 - Atherosclerotic heart disease of [place] coronary artery without angina pectoris (4) Acute kidney injury superimposed on CKD: Status: Acute (5) Diabetes mellitus: Status: Acute Qualifiers: Diabetes mellitus complication status: without complication Diabetes mellitus intermission coordinator insulin use: without longterm use Diabetes mellitus type: type 2 Qualified Code(s): E11.9 - Type 2 diabetes mellitus without complications (6) Obesity: Status: Acute Qualifiers: Body mass index: BMI 35.0-35.9 Obesity classification: adult class 2 (BMI 35 - 39.9) Obesity type: due to excess calories Serious obesity comorbidity presence: with serious comorbidity Qualified Code(s): E66.01 - Morbid (severe) obesity due to excess calories; Z68.35 - Body mass index [BMI] 35.0-35.9, adult (7) Hypertension: Status: Acute Qualifiers: Hypertension type: primary hypertension Qualified Code(s): I10 - Essential (primary) hypertension Reason for Visit Reason for Visit: chest and back pain Hospital Course Hospital Course 62 year old male with past medical history of hypertension, diabetes, coronary artery disease? s/p CABG , came in from home with chief complaint of chest tightness as well as shoulder blade pain, started about 2 days back prior to the day of admission, was accompanied with some dizziness, mild shortness of breath, chest tightness was relieved with nitro patch.He Was admitted for the management of chest pain:EKG has shown: Sinus bradycardia with moderate IVCD, moderate T wave abnormality possible lateral ischemia. X-ray chest:?Bibasal plaque atelectasis.Troponin trend: 17,14,14.2D echo:?Normal left ventricular size and systolic function, EF 66 %. Moderate left ventricular hypertrophy.Mild hypokinesia of the apical septal segment.?Mildly increased left atrial size.?Thickened aortic valve. Moderate aortic valve calcification.Minimal plaques were noted in the ascending aorta There is no pericardial effusion.Patient underwent coronary angiogram during the hospital stay: Which showed: CAPPS to LAD is atretic/occluded. SVG to RCA is patent. SVG to OM is occluded. Jump SVG graft to two diagonals: 1 limb is patent and other is occ lUded. This graft back fills the LAD. Current plan is to continue with medical management, he was continued on aspirin statin Plavix, Imdur. Patient overall responded well to above medical management and was discharged in stable condition to home he will [facility] his cardiology [facility] as [facility]. Physical Exam Const: COMMON NORMALS: patient oriented x3 HENMT: COMMON NORMALS: normocephalic and atraumatic HEAD & SCALP: normocephalic and atraumatic Resp: COMMON NORMALS: clear to auscultation bilaterally AUSCULTATION: clear to auscultation bilaterally Cardio: COMMON NORMALS: regular rate, regular rhythm, S1 normal heart sound present, S2 normal heart sound present, No gallops present (Cardio), No murmurs present (Cardio), No rub (Cardio) and Peripheral pulses 2+ throughout RATE: regular rate RHYTHM: regular rhythm HEART SOUNDS: S1 normal heart sound present and S2 normal heart sound present PERIPHERAL PULSES: Peripheral pulses 2+ throughout GI: COMMON NORMALS: Normal to inspection, nondistended, normoactive bowel sounds present, Soft to palpation, non-tender, No hepatosplenomegaly present and no masses AUSCULTATION: Yes normoactive bowel sounds PALPATION: Yes Soft to palpation and Yes No hepatosplenomegaly present RECTAL EXAM: Yes deferred Extremity: COMMON NORMALS: no clubbing, cyanosis or edema and no pedal edema Neuro: COMMON NORMALS: patient oriented x3 Discharge Data Studies Completed and Pending Completed Studies During Hospitalization Category Date Time Status XR chest 1V portable [id number] Stat Exams 12/30/22 12:24 Completed CV. echo complete* [id number] Routine Ultrasound 12/30/22 20:02 Completed Pending at discharge Category Date Time Status TOPOGRAPHICAL ENGINEER request for service Routine Exams 01/01/23 09:00 Taken CBC Auto Diff [Complete Blood Count w/Auto] AM LABS Lab 01/02/23 04:00 Ordered CBC Auto Diff [Complete Blood Count w/Auto] AM LABS Lab 01/03/23 04:00 Ordered CMP [Comprehensive Metabolic Panel] AM LABS Lab 01/02/23 04:00 Ordered CMP [Comprehensive Metabolic Panel] AM LABS Lab 01/03/23 04:00 Ordered Radiology Impressions Chest X-Ray 12/30/22 12:24 IMPRESSION: 1. Pulmonary hyperinflation which might indicate COPD. No acute process. 2. Bibasal plaque atelectasis. Laboratory Results WBC 4.7 10^3/uL (4.0-10.0) 01/01/23 03:58 RBC 4.54 10^6/uL (4.1-5.3) 01/01/23 03:58 Hgb 11.8 g/dL (11.7-16.6) 01/01/23 03:58 Hct 37.4 % (42.0-52.0) L 01/01/23 03:58 MCV 82.4 fl (80-94) 01/01/23 03:58 MCH 26.0 pg (28.0-34.0) L 01/01/23 03:58 MCHC 31.6 g/dL (30.0-36.0) 01/01/23 03:58 RDW 15.1 % (12.1-15.1) 01/01/23 03:58 Plt Count 187 10^3/cmm (130-400) 01/01/23 03:58 MPV 10.1 fL (7.4-10.4) 01/01/23 03:58 Neut % (Auto) 54.2 % 01/01/23 03:58 Lymph % (Auto) 33.3 % 01/01/23 03:58 [place] % (Auto) 8.2 % 01/01/23 03:58 Eos % (Auto) 3.0 % 01/01/23 03:58 Baso % (Auto) 0.9 % 01/01/23 03:58 Neut # (Auto) 2.53 10^3/uL (1.8-7.7) 01/01/23 03:58 Lymph # (Auto) 1.6 10^3/uL (0.8-4.8) 01/01/23 03:58 [place] # (Auto) 0.4 10^3/uL (0.2-0.9) 01/01/23 03:58 Eos # (Auto) 0.1 10^3/uL (0.0-0.8) 01/01/23 03:58 Baso # (Auto) 0.0 10^3/uL (0.0-0.1) 01/01/23 03:58 Nucleated RBC % (auto) 0 % 01/01/23 03:58 Nucleated RBCs # 0.0 /100WBC 01/01/23 03:58 PT 14.30 SECONDS (12.1-14.9) 12/30/22 14:45 INR 1.07 (0.8-1.2) 12/30/22 14:45 APTT 26.9 SECONDS (23.9-36.7) 12/30/22 14:45 Sodium 134 mmol/L (136-145) L 01/01/23 03:58 Potassium 3.4 mmol/L (3.5-5.1) L 01/01/23 03:58 Chloride 104 mmol/L (98-107) 01/01/23 03:58 Carbon Dioxide 21 mmol/L (22-29) L 01/01/23 03:58 Anion Gap 12.4 (5-19) 01/01/23 03:58 BUN 14 mg/dL (8-23) 01/01/23 03:58 Creatinine 0.9 mg/dL (0.7-1.2) 01/01/23 03:58 GFR Calculation 85.8 mL/min (90-130) L 01/01/23 03:58 Glucose 178 mg/dL (65-115) H 01/01/23 03:58 POC Glucose 147 mg/dL (70-110) H 01/01/23 12:02 Calculated Osmolality 283 mOsm/kg (285-295) L 01/01/23 03:58 Calcium 8.4 mg/dL (8.5-10.5) L 01/01/23 03:58 Total Bilirubin 0.3 mg/dL (0.15-1.2) 01/01/23 03:58 AST 12 U/L (0-40) 01/01/23 03:58 ALT 10 U/L (0-41) 01/01/23 03:58 Alkaline Phosphatase 88 U/L (40-130) 01/01/23 03:58 Troponin T Baseline 17 ng/L (0-15) H 12/30/22 12:17 Troponin T 120 Minute 14.67 ng/L (0-15) 12/30/22 14:45 Delta Troponin T -2.33 ABS# (0-10) L 12/30/22 14:45 Troponin T Hi Sens 6Hr 14.87 ng/L (0-15) 12/30/22 18:32 Troponin T Hi Sens 6Hr Delta -2.13 ng/L (0-12) L 12/30/22 18:32 Total Protein 6.1 g/dL (6.6-8.7) L 01/01/23 03:58 Albumin 3.4 g/dL (3.5-5.2) L 01/01/23 03:58 Globulin 2.7 g/dL (1.3-4.6) 01/01/23 03:58 Urine Color Yellow (Yellow) 12/31/22 11:21 Urine Appearance Clear (CLEAR) 12/31/22 11:21 Urine pH 5 (5-7) 12/31/22 11:21 Ur Specific [place] 1.020 (1.005-1.030) 12/31/22 11:21 Urine Protein Neg (Negative) 12/31/22 11:21 Urine Glucose (UA) 4+ (Normal) H 12/31/22 11:21 Urine Ketones 1+ (Negative) H 12/31/22 11:21 Urine Blood Trace (Negative) H 12/31/22 11:21 Urine Nitrate Negative (Negative) 12/31/22 11:21 Urine Bilirubin Neg (Negative) 12/31/22 11:21 Urine Urobilinogen Norm mg/dL (Negative) 12/31/22 11:21 Ur Leukocyte Esterase Trace (Negative) H 12/31/22 11:21 Urine RBC Rare /hpf (0-2) 12/31/22 11:21 Urine WBC 0-4 /hpf (0-5) H 12/31/22 11:21 Ur Squamous Epith Cells 0-4 /hpf (0-5) H 12/31/22 11:21 Amorphous Sediment Not Reportable 12/31/22 11:21 Urine Bacteria Trace /hpf (NONE) 12/31/22 11:21 Vitals Last Vital Signs Temp 98.2 F 01/01/23 04:58 Pulse 60 01/01/23 15:00 Resp 18 01/01/23 15:00 BP 136/63 01/01/23 15:00 Pulse Ox 94 01/01/23 15:00 O2 Del Method 01/01/23 15:00 Discharge Plan Discharge Patient Disposition: Home Condition: Stable Prescriptions: Continued tamsulosin 0.4 mg capsule 0.4 mg PO DAILY clopidogrel 75 mg tablet 75 mg PO DAILY lisinopril 40 mg tablet 40 mg PO DAILY hydrochlorothiazide 50 mg tablet 50 mg PO DAILY atorvastatin 80 mg tablet 80 mg PO DAILY amlodipine 10 mg tablet 10 mg PO DAILY Qty: 90 3RF potassium chloride 10 mEq capsule, extended release 10 meq PO DAILY Qty: 30 0RF aspirin [Aspir-81] 81 mg Tablet,Delayed Release (Dr/Ec) 81 mg PO QAM cinnamon bark [Cinnamon] 500 mg Capsule 500 mg PO BID carvedilol 25 mg tablet 25 mg PO DAILY amiodarone 200 mg tablet 200 mg PO DAILY metformin 1,000 mg tablet 500 mg PO BID isosorbide mononitrate 60 mg tablet extended release 24 hr 60 mg PO DAILY 30 Days Qty: 30 2RF Discharge Orders: Discharge Order (Routine); Ordered 01/01/23 Ordered By: Nabil Cameron Referrals: Alex Auguste, [Primary Care Provider] - 01/08/23 10:40 am (Dr. Auguste will now be seeing patients at the [facility]. Please call if you have any questins or concerns. Thank you. [address] [place] [id number] ) Patient Instructions: Type 2 Diabetes, Coronary Artery Disease (DC), Chest Pain (DC), Acute Kidney Injury (DC), Chronic Kidney Disease (DC), Hyponatremia (DC), Hypokalemia (DC), Hypertension (DC), Hyperlipidemia (DC), Heart Catheterization (DC), Opioid Safety Discharge Attestations Time Spent in Discharge Care*: less than 30 min Quality Metrics Clinical Quality Measures [ No reported AMI, CVA or VTE this stay] Coding Level of Care Code Acute Code for g Fwd Diagnoses Chest pain R07.9 Hyperlipidemia E78.00 Hyperlipidemia type: pure hypercholesterolemia Coronary artery disease I25.10 Associated angina: without angina Coronary Disease-Associated Artery/Lesion type: [place] artery [place] vs. transplanted heart: [place] heart Acute kidney injury superimposed on CKD N17.9; N18.9 Diabetes mellitus E11.9 Diabetes mellitus complication status: without complication Diabetes mellitus longterm insulin use: without intermission coordinator use Diabetes mellitus type: type 2 Obesity E66.01; Z68.35 Body mass index: BMI 35.0-35.9 Obesity classification: adult class 2 (BMI 35 - 39.9) Obesity type: due to excess calories Serious obesity comorbidity presence: with serious comorbidity Hypertension I10 Hypertension type: primary hypertension
[2023-01-01 17:21] LABS: Glucose Point of Care 280 mg/dL (70-110)
--- NOTE | 2023-01-01 17:52 | PC.NURSE ---
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 He returned to unit at 1100 and NS fluids were restarted with new order at 1315 at 100 ml/hr.
== END 2023-01-01 19:17 | disposition home or self-care (01) ==
LOC: ER 15:39 → CSU 16:49
PROVIDERS: Internal Medicine; Admitting Provider Internal Medicine; Emergency Provider Family Medicine; PCP Family Medicine; Visit Provider Internal Medicine
DX: R07.9 Chest pain, unspecified (principal); E78.00 Pure hypercholesterolemia, unspecified; I25.10 Atherosclerotic heart disease of native coronary artery without angina pectoris; N17.9 Acute kidney failure, unspecified; I12.9 Hypertensive chronic kidney disease with stage 1 through stage 4 chronic kidney disease, or unspecified chronic kidney disease; E11.22 Type 2 diabetes mellitus with diabetic chronic kidney disease; N18.9 Chronic kidney disease, unspecified; E66.01 Morbid (severe) obesity due to excess calories; Z68.35 Body mass index [BMI] 35.0-35.9, adult; E66.9 Obesity, unspecified; Z68.34 Body mass index [BMI] 34.0-34.9, adult; Z87.891 Personal history of nicotine dependence; Z95.1 Presence of aortocoronary bypass graft; Z79.82 Long term (current) use of aspirin
CPT/HCPCS: 36415; 36416; 71045; 80053; 81001; 81015; 82962; 84484; 85025; 85049; 85610; 85730; 93005; 93306; 93459; 96365; 96367; 96372; 99152; 99153; 99285; C1769; C1887; C1894; G0378; J0360; J1644; J1815; J2250; J3010; J3480; J3490; J7030; Q0163; Q9967

== ENCOUNTER → 2023-02-02 10:09 | Outpatient (BNVA) | payer BC, SELFPAY | PROVIDERS: PCP Family Medicine; Visit Provider Family Medicine | DX: I10 Essential (primary) hypertension (principal); E16.2 Hypoglycemia, unspecified; I25.10 Atherosclerotic heart disease of native coronary artery without angina pectoris | CPT/HCPCS: 80061 ==

== ENCOUNTER → 2023-02-16 08:36 | Outpatient (BNVA) | payer BC, SELFPAY | PROVIDERS: PCP Family Medicine; Visit Provider Family Medicine | DX: E11.9 Type 2 diabetes mellitus without complications (principal); I25.10 Atherosclerotic heart disease of native coronary artery without angina pectoris; I10 Essential (primary) hypertension | CPT/HCPCS: 80053; 83036 ==

== ENCOUNTER → 2023-11-09 11:26 | Outpatient (BNVA) | payer OTHER, SELFPAY | PROVIDERS: PCP Family Medicine; Visit Provider Family Medicine | DX: I10 Essential (primary) hypertension (principal); I25.10 Atherosclerotic heart disease of native coronary artery without angina pectoris; E11.9 Type 2 diabetes mellitus without complications; Z13.6 Encounter for screening for cardiovascular disorders; R23.3 Spontaneous ecchymoses; M25.519 Pain in unspecified shoulder; M75.100 Unspecified rotator cuff tear or rupture of unspecified shoulder, not specified as traumatic | CPT/HCPCS: 73030; 80053; 80061; 83036; 85025 ==

== ENCOUNTER 2023-12-30 14:54 | Outpatient (CLI) | payer OTHER, SELFPAY ==
--- NOTE | 2023-12-30 15:15 | MR_ITS ---
WS: [id number] MRI LEFT SHOULDER with and without contrast. HISTORY: dysfunction left shoulder with soft tissue tears/and degenerative changes COMPARISON: Radiograph 11/09/2023 TECHNIQUE: Multiplanar sequences of the shoulder joint are submitted. Postcontrast imaging in multipl e planes, MultiHance 20 mL IV. Severe AC joint arthritis. Large hypertrophic osteophytes from the distal clavicle and the acromion. There is significant impingement and encroachment upon the supraspinatus tendon and muscle. There is fluid through the AC joint and fluid in the subacromial and subdeltoid bursa. Biceps tendon is identi fied in the bicipital groove and contains a split tear. No os acromion. Mild atrophy of the supraspinatus and subscapularis muscles. There is edema within a portion of the s upraspinatus muscle. Distal insertion site tear over a width of 7 mm involving the supraspinatus tend on. There is an additional full-thickness defect and tear that extends through the entire distal supr aspinatus tendon also. No subscapularis tendon tear. Infraspinatus tendon is intact. Postcontrast images are negative for enhancing mass. There is enhancement within the periphery of the bursa on the postcontrast imaging there is low signal foci within the fluid surrounding the humeral head. This may be calcific tendinitis or cartilage fragments. IMPRESSION: 1. Distal full-thickness supraspinatus tear at insertion site tear. 2. Mild atrophy of the infraspinatus and subscapularis muscles with edema in the supraspinatus muscl e. 3. Severe AC joint arthritis with encroachment upon the supraspinatus tendon and muscle. 4. Enhancement of the subacromial and subdeltoid bursa. Probably representing bursitis. Less likely infection. 5. Split tear biceps tendon. 6. Calcific tendinitis versus small cartilage fragments in the fluid surrounding the supraspinatus t endon.
[2023-12-30] MEDS: gadobenate dimeglumine 20 mL vial IV (15:57)
== END 2023-12-30 14:55 | disposition home or self-care (01) ==
LOC: RAD 14:55
PROVIDERS: PCP Family Medicine; Visit Provider Family Medicine
DX: M75.122 Complete rotator cuff tear or rupture of left shoulder, not specified as traumatic (principal); S46.212A Strain of muscle, fascia and tendon of other parts of biceps, left arm, initial encounter; M19.012 Primary osteoarthritis, left shoulder; X58.XXXA Exposure to other specified factors, initial encounter
CPT/HCPCS: 73223; A9577

== ENCOUNTER → 2024-03-28 11:37 | Outpatient (BNVA) | payer OTHER, SELFPAY | PROVIDERS: PCP Family Medicine; Visit Provider Specialist | DX: M25.812 Other specified joint disorders, left shoulder; M19.012 Primary osteoarthritis, left shoulder | CPT/HCPCS: 73030 ==

== ENCOUNTER 2024-07-19 19:35 | Emergency (ER) | payer OTHER, SELFPAY ==
[2024-07-19] VITALS (7 sets, daily range): BP systolic 131–162; BP diastolic 61–76; PULSE 50–72; RESP 16; TEMP 36.7; O2SAT 94–99; BMI 29.5
--- NOTE | 2024-07-19 20:33 | W.ED.MALEGU ---
HPI - Male Genitourinary General: Chief complaint: Urogenital-Male Stated complaint: peeing blood Time Seen by Provider: 07/19/24 20:19 History of Present Illness: 64-year-old man with history of coronary artery disease status post stents and CABG on Plavix who presents the emergency room with hematuria. He has had no pain. No flank pain. No dysuria. No urinary retention. No blood clots. He says after he got on the tractor for a while they got off and went to the bathroom and there was blood in his urine. This happened again this afternoon. No fevers. He has noticed worsening bruising lately. He is on Plavix. Related Data Home Medications Medication Instructions Recorded Confirmed aspirin 81 mg tablet,delayed 81 mg PO QAM 11/04/21 07/08/24 release clopidogrel 75 mg tablet 75 mg PO DAILY 05/06/22 07/08/24 hydrochlorothiazide 50 mg tablet 50 mg PO DAILY 10/13/22 07/08/24 cinnamon bark 500 mg capsule 1,000 mg PO BID 01/19/23 07/08/24 (Cinnamon) Previous Rx's Medication Instructions Recorded potassium chloride 10 mEq 10 meq PO DAILY #30 caps 10/15/22 capsule,extended release semaglutide 1 mg/dose (2 mg/1.5 0.5 mg (0.375 mL) SUBCUT .qweekly 08/25/23 mL) subcutaneous pen injector #3 mL amlodipine 10 mg tablet 10 mg PO DAILY for bp #90 tabs 11/06/23 atorvastatin 80 mg tablet 80 mg PO DAILY #90 tabs 02/17/24 tamsulosin 0.4 mg capsule See Rx Instructions .Route 02/17/24 .COMPLEX #90 caps glipizide 10 mg tablet, extended 10 mg PO DAILY DM #90 tabs 03/14/24 release 24 hr lisinopril 20 mg tablet 20 mg PO DAILY #90 tabs 03/14/24 carvedilol 3.125 mg tablet 3.125 mg PO BID for heart #180 tabs 04/18/24 isosorbide mononitrate 60 mg 60 mg PO DAILY 90 days #90 tabs 06/13/24 tablet,extended release 24 hr insulin detemir U-100 100 unit/mL 15 unit (0.15 mL) SUBCUT DAILY DM 06/20/24 (3 mL) subcutaneous pen (Levemir #45 mL FlexPen) insulin glargine 100 unit/mL (3 15 unit (0.15 mL) SUBCUT .qpm DM 06/21/24 mL) subcutaneous pen (Basaglar #15 mL KwikPen U-100 Insulin) cefdinir 300 mg capsule 300 mg PO BID 7 days #14 caps 07/19/24 Allergies Allergy/AdvReac Type Severity Reaction Status Date / Time No Known Allergies Allergy Verified 07/08/24 09:48 Review of Systems Narrative: Constitutional symptoms: Negative except as documented in HPI. Skin symptoms: Negative except as documented in HPI. Eye symptoms: Negative except as documented in HPI. ENMT symptoms: Negative except as documented in HPI. Respiratory symptoms: Negative except as documented in HPI. Cardiovascular symptoms: Negative except as documented in HPI. Gastrointestinal symptoms: Negative except as documented in HPI. Genitourinary symptoms: Negative except as documented in HPI. Musculoskeletal symptoms: Negative except as documented in HPI. Neurologic symptoms: Negative except as documented in HPI. Psychiatric symptoms: Negative except as documented in HPI. Endocrine symptoms: Negative except as documented in HPI. PFSH ED PFSH: Medical History Chest pain Hypokalemia Hyponatremia Acute kidney injury superimposed on CKD Coronary artery disease Hyperlipidemia Coronary artery disease Obesity Diabetes mellitus Hypertension Surgical History Hx of carpal tunnel repair Hx of coronary artery bypass graft December 2021 Family History Other CAD (coronary artery disease) Diabetes Social History Smoking and tobacco/nicotine status: never used tobacco/nicotine Quit status (tobacco/nicotine): has quit using Year quit tobacco: 2010 Former quit date comment: 35 pack year history Physical Exam Narrative: EXAM NARRATIVE: General: Alert, no acute distress. Skin: Warm, dry. Head: Normocephalic, atraumatic. Neck: Supple, trachea midline. Eye: Extraocular movements are intact. Ears, nose, mouth and throat: mucosa moist. Cardiovascular: Regular, Normal peripheral perfusion. Respiratory: Lungs are clear to auscultation, respirations are non-labored, breath sounds are equal, Symmetrical chest wall expansion. Gastrointestinal: Soft, Nontender, Non distended Musculoskeletal: Normal ROM, no deformity. Neurological: Alert and oriented, No focal neurological deficit observed. Psychiatric: Cooperative, appropriate mood & affect. Course Vital Signs: Vital signs: Vital Signs Temperature 98.1 F 07/19/24 20:06 Pulse Rate 50 L 07/19/24 22:30 Respiratory Rate 16 07/19/24 20:06 Blood Pressure 154/63 07/19/24 22:30 Pulse Oximetry 97 07/19/24 22:30 Oxygen Delivery Me thod Room Air 07/19/24 22:30 MDM - Male Medical Decision Making Medical decision making: Differential diagnosis for complaint of hematuria including but not limited to and based on the above HPI, review of systems and physical exam: UTI / hemorrhagic cystitis, pyelonephritis, kidney stones, bladder cancer Orders placed to evaluate differential diagnosis based on the above differential, HPI and physical exam Lab Review: Laboratory results were reviewed and interpreted by myself the emergency room physician. No leukocytosis. No anemia. Renal function is normal sugars little high at 318. Patient does have hematuria but he also has some leukocytosis in his urine. Likely hematuria secondary to infection. I reviewed the patient's medical record. Reexamination: Patient remained stable. No increased work of breathing. No altered mental status. No focal motor deficits. Patient does note easy bruising with his blood thinner. We discussed urology follow-up if this does not resolve and even if it does to rule out any kind of cystic tumors. Assessment and plan: Cystitis Hematuria ?DONTE Cota in the emergency room - Discharged home - Discussed findings and plan with patient. Answered any questions. - All laboratory values were reviewed and interpreted personally by myself, the ER physician - Evaluation and treatment of this problem were appropriate in the emergency setting Lab Data 07/19/24 20:47 07/19/24 20:47 Laboratory Results WBC 8.02 10^3/uL (3.29-11.43) 07/19/24 20:47 RBC 4.95 10^6/uL (3.85-5.65) 07/19/24 20:47 Hgb 13.10 g/dL (11.27-16.99) 07/19/24 20:47 Hct 41.3 % (37-53) 07/19/24 20:47 MCV 83.4 fl (82-101) 07/19/24 20:47 MCH 26.5 pg (27-33) L 07/19/24 20:47 MCHC 31.7 g/dL (30-55) 07/19/24 20:47 RDW 14.8 % (12.1-15.1) 07/19/24 20:47 Plt Count 179 10^3/cmm (157-399) 07/19/24 20:47 MPV 9.9 fL (7.4-10.4) 07/19/24 20:47 Neut % (Auto) 68.4 % 07/19/24 20:47 Lymph % (Auto) 21.9 % 07/19/24 20:47 [place] % (Auto) 7.1 % 07/19/24 20:47 Eos % (Auto) 2.0 % 07/19/24 20:47 Baso % (Auto) 0.5 % 07/19/24 20:47 Neut # (Auto) 5.48 10^3/uL (1.8-7.7) 07/19/24 20:47 Lymph # (Auto) 1.8 10^3/uL (0.8-4.8) 07/19/24 20:47 [place] # (Auto) 0.6 10^3/uL (0.2-0.9) 07/19/24 20:47 Eos # (Auto) 0.2 10^3/uL (0.0-0.8) 07/19/24 20:47 Baso # (Auto) 0.0 10^3/uL (0.0-0.1) 07/19/24 20:47 Nucleated RBC % (auto) 0 % 07/19/24 20:47 Nucleated RBCs # 0.0 /100WBC 07/19/24 20:47 PT 13.00 SECONDS (12.1-14.9) 07/19/24 20:47 INR 0.96 (0.8-1.2) 07/19/24 20:47 APTT 27.1 SECONDS (23.9-36.7) 07/19/24 20:47 Sodium 135 mmol/L (136-145) L 07/19/24 20:47 Potassium 3.8 mmol/L (3.5-5.1) 07/19/24 20:47 Chloride 102 mmol/L (98-107) 07/19/24 20:47 Carbon Dioxide 23 mmol/L (22-29) 07/19/24 20:47 Anion Gap 13.8 (5-19) 07/19/24 20:47 BUN 19 mg/dL (8-23) 07/19/24 20:47 Creatinine 1.0 mg/dL (0.7-1.2) 07/19/24 20:47 GFR Calculation 75.5 mL/min (90-130) L 07/19/24 20:47 Glucose 318 mg/dL (65-115) H 07/19/24 20:47 Calculated Osmolality 294 mOsm/kg (285-295) 07/19/24 20:47 Calcium 8.7 mg/dL (8.5-10.5) 07/19/24 20:47 Total Bilirubin 0.5 mg/dL (0.15-1.2) 07/19/24 20:47 AST 13 U/L (0-40) 07/19/24 20:47 ALT 20 U/L (0-41) 07/19/24 20:47 Alkaline Phosphatase 130 U/L (40-130) 07/19/24 20:47 Total Protein 6.9 g/dL (6.6-8.7) 07/19/24 20:47 Albumin 4.1 g/dL (3.5-5.2) 07/19/24 20:47 Globulin 2.8 g/dL (1.3-4.6) 07/19/24 20:47 Urine Color Other (Yellow) A 07/19/24 22:01 Urine Appearance Turbid (CLEAR) A 07/19/24 22:01 Urine pH Not Reportable 07/19/24 22:01 Ur Specific [place] Not Reportable 07/19/24 22:01 Urine Protein Not Reportable 07/19/24 22:01 Urine Glucose (UA) Not Reportable 07/19/24 22:01 Urine Ketones Not Reportable 07/19/24 22:01 Urine Blood Not Reportable 07/19/24 22:01 Urine Nitrate Not Reportable 07/19/24 22:01 Urine Bilirubin Not Reportable 07/19/24 22:01 Urine Urobilinogen Not Reportable 07/19/24 22:01 Ur Leukocyte Esterase Not Reportable 07/19/24 22:01 Urine RBC Too numerous to cnt /hpf (0-2) H 07/19/24 22:01 Urine WBC 25-40 /hpf (0-5) H 07/19/24 22:01 Ur Squamous Epith Cells 0-4 /hpf (0-5) H 07/19/24 22:01 Amorphous Sediment Not Reportable 07/19/24 22:01 Urine Bacteria Trace /hpf (NONE) 07/19/24 22:01 No radiology studies performed this visit Discharge Plan Discharge Patient Disposition: Home Clinical Impression: Urinary tract infection, Hematuria, Chronic anticoagulation Condition: Stable Prescriptions: New cefdinir 300 mg capsule 300 mg PO BID 7 Days Qty: 14 0RF No Action clopidogrel 75 mg tablet 75 mg PO DAILY hydrochlorothiazide 50 mg tablet 50 mg PO DAILY Hold Instructions: Adverse Reaction semaglutide 1 mg/dose (2 mg/1.5 mL) pen injector 0.5 mg SUBCUT .qweekly Qty: 3 1RF potassium chloride 10 mEq capsule, extended release 10 meq PO DAILY Qty: 30 0RF amlodipine 10 mg tablet 10 mg PO DAILY Qty: 90 3RF Hold Instructions: Home Medication placed on hold at Doctor's office tamsulosin 0.4 mg capsule See Rx Instructions .ROUTE .COMPLEX Qty: 90 3RF Dose Instruction: take 1 capsule BY MOUTH EVERY DAY Rx Instructions: take 1 capsule BY MOUTH EVERY DAY atorvastatin 80 mg tablet 80 mg PO DAILY Qty: 90 3RF lisinopril 20 mg tablet 20 mg PO DAILY Qty: 90 3RF glipizide 10 mg tablet extended release 24hr 10 mg PO DAILY Qty: 90 1RF Rx Instructions: take before first meal of the day. carvedilol 3.125 mg tablet 3.125 mg PO BID Qty: 180 3RF isosorbide mononitrate 60 mg tablet extended release 24 hr 60 mg PO DAILY 90 Days Qty: 90 3RF Levemir FlexPen 100 unit/mL (3 mL) insulin pen 15 unit SUBCUT DAILY MDD 100 units Qty: 45 3RF Rx Instructions: Increase dose by 5 units until morning fasting glucose <150 insulin glargine [Basaglar KwikPen U-100 Insulin] 100 unit/mL (3 mL) insulin pen 15 unit SUBCUT .qpm Qty: 15 3RF Rx Instructions: increase dose by 5units nightly until fasting morning sugars are <150 aspirin 81 mg Tablet,Delayed Release (Dr/Ec) 81 mg PO QAM cinnamon bark [Cinnamon] 500 mg capsule 1,000 mg PO BID Discharge Orders: Discharge ED (Routine); Ordered 07/19/24 Ordered By: Sara Alvarado Referrals: Thee Lovett [Referring] - 7-10 days (Please call for an appointment if bleeding persists. Return to the ER if you have trouble urinating) Alex Auguste DO [Primary Care Provider] - 1-3 days (Please call for an appointment) Discharge Diet: Usual diet Discharge Activity: Increase activity as tolerated Patient Instructions: Urinary Tract Infection in Men (ED), Hematuria (ED) Activity Restrictions/Additional Instructions: Thank you for choosing [facility] for your healthcare needs today. Please realize this is an emergency room and that we are providing you with a medical screening exam and this may not be complete and all inclusive of all the testing and or work up that you may need to determine your ailment or severity of your illness. You have been screened and evaluated and felt safe for discharge. Health conditions do change or evolve sometimes and as such it is important that you follow up with your Primary Doctor to be re checked, 3-5 days is a general good time frame for follow up. You are always welcome to return to the ED for re assessment if your symptoms are worsening or you have new concerns Coding Level of Care Code ED Doctor Podiatric Medicine for [facility]
[2024-07-19 21:00] LABS: Basophils % 0.5 %; Eosinophils # 0.2 10^3/uL (0.0-0.8); Hematocrit 41.3 % (37-53); Lymphocytes # 1.8 10^3/uL (0.8-4.8); Lymphocytes % 21.9 %; Mean Corpuscular HGB Conc 31.7 g/dL (30-55); Mean Corpuscular Hemoglobin 26.5 pg (27-33); Mean Corpuscular Volume 83.4 fl (82-101); Mean Platelet Volume 9.9 fL (7.4-10.4); Monocytes # 0.6 10^3/uL (0.2-0.9); Monocytes % 7.1 %; Neutrophils # 5.48 10^3/uL (1.8-7.7); Neutrophils % 68.4 %; Nucleated Red Blood Cells % 0 %; Platelet Count 179 10^3/cmm (157-399); Red Blood Count 4.95 10^6/uL (3.85-5.65); Red Cell Distribution Width 14.8 % (12.1-15.1); White Blood Count 8.02 10^3/uL (3.29-11.43)
[2024-07-19 21:06] LABS: INR 0.96 (0.8-1.2); Partial Thromboplastin Time 27.1 SECONDS (23.9-36.7)
[2024-07-19 21:11] LABS: Alanine Aminotransferase 20 U/L (0-41); Albumin Level 4.1 g/dL (3.5-5.2); Alkaline Phosphatase 130 U/L (40-130); Anion Gap 13.8 (5-19); Aspartate Amino Transferase 13 U/L (0-40); Blood Urea Nitrogen 19 mg/dL (8-23); Calcium 8.7 mg/dL (8.5-10.5); Carbon Dioxide 23 mmol/L (22-29); Chloride 102 mmol/L (98-107); Globulin 2.8 g/dL (1.3-4.6); Glomerular Filtration Rate 75.5 mL/min (90-130); Glucose 318 mg/dL (65-115); Osmolality Calculated 294 mOsm/kg (285-295); Potassium 3.8 mmol/L (3.5-5.1); Sodium 135 mmol/L (136-145); Total Bilirubin 0.5 mg/dL (0.15-1.2); Total Protein 6.9 g/dL (6.6-8.7)
[2024-07-19 22:11] LABS: Add Urine Microscopic? NO
[2024-07-19 22:25] LABS: Urine Appearance Turbid (CLEAR); Urine Color Other (Yellow)
[2024-07-19 22:26] LABS: Bacteria Urine TRACE /hpf; RBC Urine TOO NUMEROUS TO CNT /hpf (0-2); Squamous Epithelial Cell Urine 0-4 /hpf (0-5); WBC Urine 25-40 /hpf (0-5)
[2024-07-19 22:27] LABS: Add Urine Culture? Yes; Charge for UA Resulting for Rev
[2024-07-19] MEDS: cefTRIAXone 1,000 MG in water for injection-sterile 2.1 ML 1 MG IM (23:10)
== END 2024-07-19 23:28 | disposition home or self-care (01) ==
PROVIDERS: Emergency Medicine; Emergency Provider Emergency Medicine; PCP Family Medicine
DX: N39.0 Urinary tract infection, site not specified (principal); R31.9 Hematuria, unspecified; Z79.01 Long term (current) use of anticoagulants; Z79.85 Long-term (current) use of injectable non-insulin antidiabetic drugs; Z79.02 Long term (current) use of antithrombotics/antiplatelets; Z79.82 Long term (current) use of aspirin; Z79.84 Long term (current) use of oral hypoglycemic drugs; Z79.4 Long term (current) use of insulin; Z87.891 Personal history of nicotine dependence; I12.9 Hypertensive chronic kidney disease with stage 1 through stage 4 chronic kidney disease, or unspecified chronic kidney disease; E11.22 Type 2 diabetes mellitus with diabetic chronic kidney disease; N18.9 Chronic kidney disease, unspecified; I25.10 Atherosclerotic heart disease of native coronary artery without angina pectoris; E78.5 Hyperlipidemia, unspecified; Z95.1 Presence of aortocoronary bypass graft
CPT/HCPCS: 80053; 81003; 85025; 85610; 85730; 87086; 96372; 96374; 99284; J0696